=== PATIENT | female | born 1995 | race Caucasian/White ===

== ENCOUNTER → 2018-04-10 18:12 | Outpatient (CLI) | payer SELFPAY ==
[2018-04-10 20:21] LABS: Chlamydia Trachomatis by PCR Negative (Negative); Neisserai gonorrhoeae by PCR Negative (Negative); Probe Check PASS; Sample Adequacy Control PASS; Specimen Processing Control PASS
== END ==
PROVIDERS: Family Provider Family Medicine; PCP Family Medicine; Visit Provider Obstetrics & Gynecology
DX: Z11.3 Encounter for screening for infections with a predominantly sexual mode of transmission (principal)
CPT/HCPCS: 87491; 87591

== ENCOUNTER → 2018-05-09 10:26 | Outpatient (CLI) | payer OTHER, SELFPAY ==
[2018-05-09 11:13] LABS: Absolute Lymphocyte Count 1.43 X10^3/ul (0.83-4.51); Absolute Neutrophil Count 3.4 X10^3/uL (2.0-7.7); Basophil# 0.02 X10^3/uL; Basophil% 0.4 % (0-1); Color, Urine Yellow (Yellow); Eosinophil# 0.04 X10^3/uL; Eosinophils% 0.8 % (0-5); Glucose, Dipstick Normal (Normal); Hematocrit 30.8 % (37-47); Hemoglobin 10.7 g/dl (12.0-15.0); Ketone-Dipstick Negative (Negative); Leukocyte Esterase-Dipstick 25 /ul (Negative); Lymphocyte # 1.43 X10^3/ul (4.0); Lymphocyte % 27.2 % (19-41); Mean Corp Hgb Conc 34.7 g/gl (32-36); Mean Corpuscular Hgb 31.5 pg (27.0-32.0); Mean Corpuscular Volume 90.6 fL (81-99); Mean Platelet Vol. 10.4 fl (6.2-12.0); Monocyte% 7.6 % (0-10); Neutrophil # 3.37 X10^3/uL (2.7-7.7); Nitrite-Dipstick Negative (Negative); Occult Blood-Urine Negative /ul (Negative); POSITIVE COUNT NO; POSITIVE DIFFERENTIAL NO; POSITIVE MORPHOLOGY NO; Platelet Count 228 K/mm3 (150-450); Protein-Dipstick Negative (Negative); RBC Distribution Width CV 12.5 % (11.6-14.6); RBC Distribution Width SD 40.4 fl (35.1-43.9); Specific Gravity, Urine 1.005 (1.002-1.030); Urine Bilirubin Dipstick Negative (Negative); Urine Clarity Clear (Clear); Urine Urobilinogen Normal (Normal); White Blood Count 5.3 K/mm3 (4.4-11.0)
[2018-05-09 11:52] LABS: Thyroid Stim Hormone (TSH) 0.81 uIU/mL (0.358-3.74)
[2018-05-09 12:09] LABS: HIV - WCH Non-Reactive (Nonreactive); Rubella IgG 49.7 IU/mL
[2018-05-10 13:08] LABS: HEPATITIS B SURFACE AG Negative (Negative); Hep C Antibodies <0.1 s/co ratio (0.0-0.9)
[2018-05-11 03:47] LABS: Prenatal RPR NONREACTIVE (NONREACTIVE)
== END ==
PROVIDERS: Visit Provider Obstetrics & Gynecology
DX: Z34.81 Encounter for supervision of other normal pregnancy, first trimester (principal)
CPT/HCPCS: 36415; 81002; 84443; 85025; 86703; 86762; 86803; 87340

== ENCOUNTER → 2018-09-05 11:48 | Outpatient (CLI) | payer SELFPAY ==
[2018-09-05 12:27] LABS: Hematocrit 26.9 % (37-47); Mean Corp Hgb Conc 33.5 g/gl (32-36); Mean Corpuscular Hgb 31.6 pg (27.0-32.0); Mean Corpuscular Volume 94.4 fL (81-99); Mean Platelet Vol. 10.2 fl (6.2-12.0); Platelet Count 228 K/mm3 (150-450); RBC Distribution Width CV 12.7 % (11.6-14.6); RBC Distribution Width SD 43.6 fl (35.1-43.9); Red Blood Count 2.85 M/mm3 (4.2-5.4); White Blood Count 6.9 K/mm3 (4.4-11.0)
[2018-09-05 12:32] LABS: Glucose Challenge Gest 1H 50g 84 mg/dL (70-140)
[2018-09-05 12:36] LABS: Scan Indicated on CBC? Y/N NO
== END ==
PROVIDERS: Visit Provider Obstetrics & Gynecology
DX: Z34.83 Encounter for supervision of other normal pregnancy, third trimester (principal)
CPT/HCPCS: 82950; 85027

== ENCOUNTER → 2018-10-30 13:06 | Outpatient (CLI) | payer OTHER, SELFPAY ==
--- OUTSIDE RECORDS SUMMARY | 2018-12-16 16:40 | XMS RPT_ITS ---
:1995 Author Organization OHIP Care Team Providers Name Role Phone Lluvia Costa Attending Unavailable Yohan Erazo Attending Unavailable Lluvia Costa Attending Unavailable Lluvia Costa Primary Care Unavailable Lluvia Costa Admitting Unavailable Lluvia Costa Attending Unavailable Lluvia Costa Referring Unavailable Lluvia Costa Attending Unavailable Mehran Mathews Primary Care Unavailable Lluvia Costa Referring Unavailable Lluvia Costa Attending Unavailable Lluvia Costa Attending Unavailable Lluvia Costa Admitting Unavailable Lluvia Costa Attending Unavailable Lluvia Costa Referring Unavailable Mehran Mathews Primary Care Unavailable PROBLEMS PROBLEMS DATE TYPE CONDITION / CODE ATTENDING STATUS SOURCE 11/23/2018 Unknown O47.1 - False labor Lluvia Costa Active [place] at or after 37 Community completed weeks of Hospital gestation / Repository O47.1(ICD-10) 10/31/2018 Unknown Z36.85 - Encounter Nia Costaily Active [place] for Community screening for Hospital Streptococcus B / Repository Z36.85(ICD-10) 09/05/2018 Unknown Z34.83 - Encounter Nia Costaily Active [place] for supervision of Community other normal Hospital , third Repository trimester / Z34.83(ICD-10) 05/10/2018 Unknown Z34.81 - Encounter Julissa Lluvia Active [place] for supervision of Community other normal Hospital , first Repository trimester / Z34.81(ICD-10) 04/11/2018 Unknown Z11.3 - Encounter Joeybrigetteluis antonioLluvia Active [place] for screening for Community infections with a Hospital predominantly Repository sexual mode of transmission / Z11.3(ICD-10) PROCEDURES PROCEDURES No Procedure Records FoundRESULTS RESULTS CBC-COMPLETE BLOOD CNT Collected: 11/23/2018 Status: F Source: [place] NO DIFF 6:05 PM [facility] REPOSITORY Order Comment: Reason for Laboratory Test Day #1 TYPE CODE TESTS RESULT OUT OF RANGE REFERENCE UNITS LAB L100.1000 4.4-11.0 K/mm3 Normal WBC 9.7 LAB L100.1200 4.2-5.4 M/mm3 Low RBC 2.79 LAB L100.1300 12.0-15.0 g/dl Low HGB 8.8 LAB L100.1400 37-47 % Low HCT 26.4 LAB L100.1500 81-99 fL Normal MCV 94.6 LAB L100.1600 27.0-32.0 pg Normal MCH 31.5 LAB L100.1700 32-36 g/gl Normal MCHC 33.3 LAB L100.1810 11.6-14.6 % Normal RDW CV 12.9 LAB L100.1820 35.1-43.9 fl High RDW SD 44.2 LAB L100.1900 150-450 K/mm3 Normal PLT 187 LAB L100.2000 6.2-12.0 fl Normal MPV 10.1 Performed By: #### L100.0500 #### [facility] [address] [place], [address] DISCHARGE INSTRUCTION Observed: 11/22/2018 Status: F Source: BLANE 2:24 PM [facility] REPOSITORY [facility] Medical Records Department [address] [place] [address] Instructions for Home/Discharge Instructions 11/22/18 1422 MR#: [id number] Acct: [id number] Name: MARTELL DURAN Rep #: [id number] : 1995 23 From: Lluvia Costa MD PCP: Status: ADM IN Discharge Diet: No Restrictions Discharge Activity: May Shower, May Take a Tub Bath May resume sexual activity in: 4-6 weeks Additional Activity Instructions:: Nothing in the vagina for 4-6 weeks. You may return to work/school in 6 weeks. Additional Instructions: If you experience any of the following, contact your healthcare provider. * Bleeding that soaks a pad every hour for 2 hours * Fever 100.4 or higher * Unrelieved abdominal pain * Problems urinating (including inability to urinate or burning while urinating). * Visual changes * Severe headache * Flu-like symptoms * Pain or redness in one of both of your breasts * Pain, warmth, tenderness or swelling in your legs, especially the calf area * Frequent nausea and vomiting * Symptoms of depression or anxiety If you experience any of the following, call 911 or go to the nearest Emergency Room. * Chest pain * Problems breathing * Seizure activity * Partial or complete paralysis of a body part, slurred speech, weakness or drooping of the face, or a sudden inability to walk or hold your balance Allergies/Adverse Reactions: Allergies No Known Allergies Allergy (Verified 11/17/18 01:27) Medications to take at Discharge Acetaminophen [Tylenol Extra Strength] 500 mg PO Q4H PRN PRN 09/10/14 Pnv No.121/Iron/Folic Acid [ Multivitamin Tablet] 1 tab PO DAILY 11/04/18 Please Follow Up With: Lluvia Costa MD - [phone] When: Call to make an appointment with your doctor in 6 weeks. Test Results: Test results from this visit will be discussed in further detail at your follow-up appointment, if applicable. Proposed Discharge Date: 11/24/18 11/22/18 1424 <Electronically signed by Lluvia Costa MD> Date Lluvia Costa MD CC: Signed OPERATIVE REPORT Observed: 11/22/2018 Status: F Source: [place] 2:22 PM [facility] REPOSITORY [facility] Medical Records Department [address] [facility] [place] [address] Operative Report 11/22/18 1413 MR#: [id number] Acct: [id number] Name: MARTELL DURAN Rep #: [id number] : 1995 23 From: Lluvia Costa MD PCP: Status: ADM IN Location: [place] [address] Vaginal Delivery Maternal Presentation: Active Labor, Spontaneous Rupture of Membranes 39 5/7 wk SROM, labor Amniotic Membrane Rupture Type: Spontaneous at home Amniotic Fluid Description: Clear Final MICHAEL: 11/24/18 Gestational age: 39 Weeks and 5 Days Date of Procedure: 11/22/18 Pre-Operative Diagnosis: 39 5/7 wk labor, SROM Post-Operative Diagnosis: Same Surgery/ Procedure Performed: Spontaneous Vaginal Delivery Type of Anesthesia: Epidural Description of Procedure: of a lópez viable male over intact perineum to lacerations. Head delivered LOLIS. No nuchal cord. OP and nares bulb suctioned at perineum. Mild shoulder dystocia relieved by S/P pressure, gentle lateral traction, maternal expulsive effort and delivery of posterior shoulder first. to maternal abdomen Ap 8/9 Cord clamped x two and cut. PP hemorrhage due to uterine atony noted. Bimanual massage, IV Pitocin bolus, Methergine 0.2 mg IM x one. Cytotec 800 mcg TX x one given. All resulted in adequate hemostasis and good uterine tone PP exam: posterior vaginal and perineal 2nd deg laceration noted. Abrasion laceration at L anterior labia. Repaired laceration under epidural to hemostatic, intact with 3-0 Vicryl. No other lacerations noted. Cervix and upper vagina intact. EBL 500 cc Pt and infant tolerated delivery well. To recovery , stable condition Ray Candido counts correct x two. Presentation: Vertex, LOLIS Placental Delivery Description: Spontaneous, Expressed Placenta Disposition: [facility] Cord Vessel Description: 3 Vessels Cord Entanglement: None Drain: Mcallister to straight drain - pink tinged urine noted Estimated Blood Loss: 500 A gender: Male (1 minute): 8 (5 minute): 9 Episiotomy Description: None Laceration: Midline, Perineal Extension/lac, Vaginal Extension/lac, 2nd degree Medications given after delivery: IV Pitocin, IM Methergin - Cytotec 800 mcg TX x one dose Complications: None - non other than uterine atony 11/22/18 1422 <Electronically signed by Lluvia Costa MD> Date Lluvia Costa MD CC: Lluvia Costa MD Signed CBC-COMPLETE BLOOD CNT Collected: 11/22/2018 Status: F Source: [place] NO DIFF 3:40 AM [facility] REPOSITORY TYPE CODE TESTS RESULT OUT OF RANGE REFERENCE UNITS LAB L100.1000 4.4-11.0 K/mm3 Normal WBC 9.1 LAB L100.1200 4.2-5.4 M/mm3 Low RBC 3.21 LAB L100.1300 12.0-15.0 g/dl Low HGB 10.4 LAB L100.1400 37-47 % Low HCT 30.6 LAB L100.1500 81-99 fL Normal MCV 95.3 LAB L100.1600 27.0-32.0 pg High MCH 32.4 LAB L100.1700 32-36 g/gl Normal MCHC 34.0 LAB L100.1810 11.6-14.6 % Normal RDW CV 12.6 LAB L100.1820 35.1-43.9 fl Normal RDW SD 42.4 LAB L100.1900 150-450 K/mm3 Normal PLT 188 LAB L100.2000 6.2-12.0 fl Normal MPV 10.5 Performed By: #### L100.0500 #### [facility] [place], [address] TYPE AND SCREEN Collected: 11/22/2018 Status: F Source: [place] 3:40 AM [facility] REPOSITORY Order Comment: Reason for Type AND Screen/Red Cells: TYPE CODE TESTS RESULT OUT OF RANGE REFERENCE UNITS LAB B10.0800 A Normal BLOOD TYPE GEL POSITIVE LAB B100.4000 Normal Antibody NEGATIVE Screen Performed By: #### B101.7450 #### [facility] [address] [place], [address] (ROM) RUPTURE OF Collected: 11/22/2018 Status: F Source: [place] MEMBRANES 3:00 AM [facility] REPOSITORY TYPE CODE TESTS RESULT OUT OF REFERENCE UNITS RANGE LAB L205.1310 Negative High ROM POSITIVE Result Comment: Amniotic fluid present indicates rupture of Membranes. RESULTS CALLED TO CHRISTIAN BAKER 11/22/18 0328 Susi Zaragoza. REPORT READ BACK BY SAME . Performed By: #### L205.1000 #### [facility] [address] [place], [address] Observed: 10/30/2018 Status: F Source: [place] CULTURE, GROUP B 9:45 AM [facility] STREPTOCOCCUS REPOSITORY Comments: VAGINAL/RECTAL OMER Culture Group B Beta Streptococcus is not isolated. Performed By: #### M100.1800 #### [facility] [address] [place], [address] GLUCOSE CHALLENGE GEST Collected: 09/05/2018 Status: F Source: [place] 1H 50G 10:45 AM [facility] REPOSITORY TYPE CODE TESTS RESULT OUT OF RANGE REFERENCE UNITS LAB L501.0250 70-140 mg/dL Normal GLU GEST 84 50g 1H Performed By: #### L501.0250 #### [facility] [address] [place], [address] CBC-COMPLETE BLOOD CNT Collected: 09/05/2018 Status: F Source: [place] NO DIFF 10:45 AM [facility] REPOSITORY TYPE CODE TESTS RESULT OUT OF RANGE REFERENCE UNITS LAB L100.1000 4.4-11.0 K/mm3 Normal WBC 6.9 LAB L100.1200 4.2-5.4 M/mm3 Low RBC 2.85 LAB L100.1300 12.0-15.0 g/dl Low HGB 9.0 LAB L100.1400 37-47 % Low HCT 26.9 LAB L100.1500 81-99 fL Normal MCV 94.4 LAB L100.1600 27.0-32.0 pg Normal MCH 31.6 LAB L100.1700 32-36 g/gl Normal MCHC 33.5 LAB L100.1810 11.6-14.6 % Normal RDW CV 12.7 LAB L100.1820 35.1-43.9 fl Normal RDW SD 43.6 LAB L100.1900 150-450 K/mm3 Normal PLT 228 LAB L100.2000 6.2-12.0 fl Normal MPV 10.2 Performed By: #### L100.0500 #### [facility] [place], [address] CBC W/DIFF, AUTOMATED Collected: 05/09/2018 Status: F Source: [place] 10:29 AM [facility] REPOSITORY TYPE CODE TESTS RESULT OUT OF RANGE REFERENCE UNITS LAB L100.1000 4.4-11.0 K/mm3 Normal WBC 5.3 LAB L100.1200 4.2-5.4 M/mm3 Low RBC 3.40 LAB L100.1300 12.0-15.0 g/dl Low HGB 10.7 LAB L100.1400 37-47 % Low HCT 30.8 LAB L100.1500 81-99 fL Normal MCV 90.6 LAB L100.1600 27.0-32.0 pg Normal MCH 31.5 LAB L100.1700 32-36 g/gl Normal MCHC 34.7 LAB L100.1810 11.6-14.6 % Normal RDW CV 12.5 LAB L100.1820 35.1-43.9 fl Normal RDW SD 40.4 LAB L100.1900 150-450 K/mm3 Normal PLT 228 LAB L100.2000 6.2-12.0 fl Normal MPV 10.4 LAB L100.2100 47-70 % Normal NEUT% 64.0 LAB L100.2200 19-41 % Normal LY% 27.2 LAB L100.2300 0-10 % Normal MONO% 7.6 LAB L100.2400 0-5 % Normal EO% 0.8 LAB L100.2500 0-1 % Normal BASO% 0.4 LAB L100.2550 0.0-0.9 % Normal IM GRAN % 0.000 Result Comment: IG% - Immature Granulocytes (promyelocytes, myelocytes and metamyelocytes) > 1% indicates that a LEFT SHIFT is Present. LAB L100.2620 2.0-7.7 X10 3/uL Normal Absolute Neut 3.4 LAB L100.2720 0.83-4.51 X10 3/ul Normal Absolute Lymph 1.43 Performed By: #### L100.0100 #### [facility] [address] [place], [place], [address] URINALYSIS, ROUTINE Collected: 05/09/2018 Status: F Source: BLANE (DIPSTICK) 10:29 AM [facility] REPOSITORY Order Comment: How was Urine Obtained? Urine, Random TYPE CODE TESTS RESULT OUT OF RANGE REFERENCE UNITS LAB L400.3000 Yellow COLOR Normal Yellow LAB L400.3050 Clear Normal CLARITY Clear LAB L400.3200 Normal mg/dl Normal GLUCOSE, UR Normal LAB L400.3300 Negative mg/dL Normal BILIRUBIN URINE Negative LAB L400.3400 Negative mg/dl Normal KETONE UR Negative LAB L400.3465 1.002-1.030 Normal SP.GR. DIPSTX 1.005 LAB L400.3550 5.0 - 8.0 pH UR Normal 7.0 LAB L400.3600 Negative mg/dl PROT Normal DIPSTX Negative LAB L400.3700 Normal mg/dl Normal UROBILI Normal LAB L400.3750 Negative Normal NITRITE UR Negative LAB L400.3780 Negative /ul Normal OCCULT BLOOD-UR Negative LAB L400.3800 Negative /ul High LEUK 25 ESTERASE Performed By: #### L400.2010 #### [facility] [address] [place], [place], [id number] THYROID STIM HORMONE Collected: 05/09/2018 Status: F Source: [place] (TSH) 10:29 AM [facility] REPOSITORY TYPE CODE TESTS RESULT OUT OF RANGE REFERENCE UNITS LAB L501.9520 0.358-3.74 uIU/mL Normal TSH 0.81 Performed By: #### L501.9520 #### [facility] [address] [place], [address] RUBELLA IGG Collected: 05/09/2018 Status: F Source: [place] 10:29 AM [facility] REPOSITORY TYPE CODE TESTS RESULT OUT OF RANGE REFERENCE UNITS LAB L509.4000 IU/mL Normal Rubella IgG 49.7 Result Comment: Antibody results Interpretation of Immune Status < 5 IU/ml Presumed Non-immune 5 - < 10 IU/ml Equivocal > or = 10 IU/ml Presumed Immune Performed By: #### L509.4000, L3890.6005 #### [facility] [address] [place], [place], [address] HIV - [facility] Collected: 05/09/2018 Status: F Source: [place] 10:29 AM [facility] REPOSITORY TYPE CODE TESTS RESULT OUT OF RANGE REFERENCE UNITS LAB L3890.6005 Nonreactive Normal HIV - [facility] Non-Reactive Performed By: #### L509.4000, L3890.6005 #### [facility] [address] [place] [address]. [place], [address] T AND S-NO Collected: 05/09/2018 Status: F Source: [place] CHARGE W/PNP 10:29 AM [facility] REPOSITORY Order Comment: Reason for Type AND Screen/Red Cells: Surgery? N TYPE CODE TESTS RESULT OUT OF RANGE REFERENCE UNITS LAB B10.0800 A Normal BLOOD POSITIVE TYPE GEL LAB B100.4050 Normal Ab SCREEN NEGATIVE GEL Performed By: #### B100.7550 #### [facility] [address] [place] [address]. [place], [address] HEPATITIS B SURFACE Collected: 05/09/2018 Status: F Source: [place] AG 10:29 AM [facility] REPOSITORY TYPE CODE TESTS RESULT OUT OF RANGE REFERENCE UNITS LAB L3100.0400 Negative Normal HB Negative SURF AG Result Comment: Performed at: [facility] [id number] Territory Sales Executive: Luis Mireles PhD, Phone: [phone] Performed By: #### L3100.0390, L3100.0625 #### [facility] (refer to report for specific site) refer to report for address and phone number HEPATITIS C ANTIBODIES Collected: 05/09/2018 Status: F Source: [place] 10:29 AM [facility] REPOSITORY TYPE CODE TESTS RESULT OUT OF RANGE REFERENCE UNITS LAB L3100.0650 0.0-0.9 s/co ratio Normal HEP C AB <0.1 Result Comment: Negative: < 0.8 Indeterminate: 0.8 - 0.9 Positive: > 0.9 The CDC recommends that a positive HCV antibody result be followed up with a HCV Nucleic Acid Amplification test (895426). Performed By: #### L3100.0390, L3100.0625 #### [facility] (refer to report for specific site) refer to report for address and phone number RPR Collected: 05/09/2018 Status: F Source: [place] 10:29 AM [facility] REPOSITORY TYPE CODE TESTS RESULT OUT OF REFERENCE UNITS RANGE LAB L700.5100 NONREACTIVE Normal RPR NONREACTIVE Performed By: #### L700.5100 #### [facility] [address] [place], [address] CT/NG [facility] BY PCR Collected: 04/10/2018 Status: F Source: BLANE 3:00 PM [facility] REPOSITORY TYPE CODE TESTS RESULT OUT OF RANGE REFERENCE UNITS LAB L8200.2100 Negative Normal Chlam Negative Trac PCR LAB L8200.2200 Negative Normal NG by Negative PCR Performed By: #### L8200.2000 #### [facility] [address] [place], [address] ALLERGIES ALLERGIES DATE TYPE / CODE NAME / CODE REACTION SEVERITY SOURCE 11/17/2018 Drug No Known Unknown [facility] Allergy/4160 Allergies/F00 Hospital 05510(SNOMED [id number](RXNOR Repository CT) M) ENCOUNTERS ENCOUNTERS ADMIT/DISCHARGE ACCOUNT ADMITTING ENCOUNTER LOCATION SOURCE NUMBER CLASS 11/24/2018 [id number] [facility] Amb[facility] [place] 4 [facility] ing:WP Repository 11/22/2018/ [id number] Julissa Inpatient [place] 9 9 [facility] ing:WPRoom: Repository [id number]: 1 11/17/2018/ [id number] Ambulatory [place] 8 2 [facility] ing:WPOUTRoom Repository : [id number] 11/04/2018/ [id number] Ambulatory [place] 8 3 [facility] ing:WPOUTRoom Repository : [id number] 10/30/2018 [id number] Ambulatory [place] 2 [facility] ing:LABSPEC Repository 09/05/2018 [id number] Ambulatory [place] 3 [facility] ing:LABSPEC Repository 05/09/2018 [id number] Ambulatory [place] 1 [facility] ing:WOBLAB Repository 04/10/2018 [id number] Ambulatory [place] 6 [facility] ing:LABSPEC Repository PAYERS PAYERS ENCOUNTER GUARANTOR PAYER SUBSCRIBER SOURCE 11/24/2018 MARTELL Fitzpatrick Primary NOT GIVENUNK [place] [id number] Insurance:SELF PAY [place], [place] Number: Effective Repository [id number]: 330) Date:2018-10-27 [phone] () 11/22/2018 MARTELL Fitzpatrick Primary Insurance:[facility] MARTELL Fitzpatrick [place] [id number] PACKAGE PLANPolicy MILLERDOB: [facility] [address] Number: Effective [id number] Date:2018-11-22 Repository [id number]: () 11/22/2018 Secondary NOT GIVENUNK [place] Insurance:SELF PAY [facility] Number: Effective Repository Date:2018-11-22 11/17/2018 MARTELL Fitzpatrick Primary Insurance:[facility] MARTELL [id number] PACKAGE PLANPolicy MILLERDOB: [facility] [address] Number: Effective [id number] Date:2018-11-17 Repository [phone]: () 11/17/2018 Secondary NOT GIVENUNK [place] Insurance:SELF PAY [facility] Number: Effective Repository Date:2018-11-17 11/04/2018 MARTELL Fitzpatrick Primary MARTELL Fitzpatrick [place] [id number] Insurance:JORGE MILLERDOB: Community [address] AIDPolicy Number: [id number] [place], [place] 0Effective Repository [address]Pas: (330) Date:2018-11-04 [phone] () 11/04/2018 Secondary NOT GIVENUNK [place] Insurance:SELF PAY [facility]: Effective Repository Date:2018-11-04 10/30/2018 MARTELL Fitzpatrick Primary MARTELL [id number] Insurance:[facility] TER[address] AIDPolicy Number: [place], [place] [address]Effective Repository [id number]: (330) Date:2018-10-30 [phone] () 10/30/2018 Secondary NOT GIVENUNK [place] Insurance:SELF PAY [facility] Number: Effective Repository Date:2018-10-30 09/05/2018 MARTELL Primary NOT GIVENUNK [place] [id number] Insurance:SELF PAY [facility] [place] [address] [place]: Effective Repository [id number]: ([phone]) Date:2018-09-05 [phone] () 05/09/2018 MARTELL Primary MARTELL [id number] [facility] [address] AIDPolicy Number: [place], [place] 0Effective Repository [id number]: (330) Date:2018-05-09 [phone] () 05/09/2018 Secondary NOT GIVENUNK [place] Insurance:SELF PAY [facility] Number: Effective Repository Date:2018-05-09 04/10/2018 MARTELL [id number] Primary NOT GIVENUNK [place] [address] Insurance:SELF PAY [place] [facility] [id number]: (330) Number: Effective Repository [phone] () Date:2018-04-10
== END ==
PROVIDERS: Visit Provider Obstetrics & Gynecology
DX: Z36.85 Encounter for antenatal screening for Streptococcus B (principal)
CPT/HCPCS: 87081

== ENCOUNTER 2018-11-04 16:25 | Outpatient (CLI) | payer OTHER, SELFPAY ==
[2018-11-04 16:50] VITALS: BMI 29.6
--- NOTE | 2018-11-05 00:15 | OB.TRI.NOTE ---
History of Present Illness Date of Service: 11/04/18 Was patient seen by the physician?: No Reason For Visit: DECREASED MOVEMENT Date of Service: 11/04/18 Final MICHAEL: 11/26/18 Final MICHAEL Source: US <20 weeks Gestational age: 37 Weeks and 0 Days History of Present Illness: Decreased movement. lower abdominal pain. Allergies No Known Allergies Allergy (Verified 11/04/18 16:51) Physical Exam General: Alert, Oriented x3, Cooperative, No apparent distress Cardiovascular: Regular rate, Regular Rhythm Lungs: Clear to auscultation, Normal air movement Abdomen: Soft, Non Tender, Non-Distended, Gravid, Appropriate for Gestational Age Extremities:: No edema Neurological: Neuro grossly intact IN STORE DEMONSTRATOR: Normal external genitalia Estimated gestational size: Appropriate for gestational size Presentation: Cephalic NST - FHR Rate Baby A Baseline: 150s Variability:: Moderate Accelerations:: 15 x 15 Decelerations:: None NST Reactive:: Yes, Appropriate for gestational age FHR Category:: Category I Uterine Activity:: rare Impression/Plan No signs of active labor. Reassuring heart rate pattern.
--- OUTSIDE RECORDS SUMMARY | 2019-02-06 13:39 | XMS RPT_ITS ---
:1995 Author Organization OHIP Care Team Providers Name Role Phone Lluvia Costa Attending Unavailable Yohan Erazo Attending Unavailable Lluvia Costa Attending Unavailable Mehran Mathews [...] O47.1 - False labor Lluvia Costa Active [place] at or after 37 Community completed weeks of Hospital gestation / Repository O47.1(ICD-10) 10/31/2018 Unknown Z36.85 - Encounter Nia Costaily Active [place] for Community screening for Hospital Streptococcus B / Repository Z36.85(ICD-10) 09/05/2018 Unknown Z34.83 - Encounter Nia Costaily Active [place] for supervision of Community other normal Hospital , third Repository trimester / Z34.83(ICD-10) 05/10/2018 Unknown Z34.81 - Encounter Julissa Lluvia Active [place] for supervision of Community other normal Hospital , first Repository trimester / Z34.81(ICD-10) 04/11/2018 Unknown Z11.3 - Encounter Joeybrigetteluis antonioLluvia Active [place] for screening for Community infections with a Hospital predominantly Repository sexual mode of transmission / Z11.3(ICD-10) PROCEDURES PROCEDURES No Procedure Records FoundRESULTS RESULTS CBC-COMPLETE BLOOD CNT Collected: 11/23/2018 Status: F Source: [place] NO DIFF 6:05 PM [facility] REPOSITORY Order Comment: Reason for Laboratory [...] MPV 10.1 Performed By: #### L100.0500 #### [facility] [address] [place], [address] DISCHARGE INSTRUCTION Observed: 11/22/2018 Status: F Source: BLANE 2:24 PM [facility] REPOSITORY [facility] Medical Records Department [address] [place] [address] Instructions for Home/Discharge Instructions 11/22/18 1422 MR#: [id number] Acct: [id number] Name: MARTELL DURAN Rep #: [id number] : 1995 23 From: Lluvia Costa MD [...] Follow Up With: Lluvia Costa MD - [phone] When: Call to make an appointment with your doctor in 6 weeks. Test Results: Test results from this visit will be discussed in further detail at your follow-up appointment, if applicable. Proposed Discharge Date: 11/24/18 11/22/18 1424 <Electronically signed by Lluvia Costa MD> Date Lluvia Costa MD CC: Signed OPERATIVE REPORT Observed: 11/22/2018 Status: F Source: FLANAGAN 2:22 PM [facility] REPOSITORY [facility] Medical Records Department [address] [facility] [place] [address] Operative Report 11/22/18 1413 MR#: [id number] Acct: [id number] Name: MARTELL DURAN Rep #: [id number] : 1995 23 From: Lluvia Costa MD PCP: Status: ADM IN Location: [place] [address] Vaginal Delivery Maternal Presentation: Active Labor, Spontaneous [...] mg IM x one. Cytotec 800 mcg MA x one given. All resulted in adequate [...] Pitocin, IM Methergin - Cytotec 800 mcg MA x one dose Complications: None - non other than uterine atony 11/22/18 1422 <Electronically signed by Lluvia Costa MD> Date Lluvia Costa MD CC: Lluvia Costa MD Signed CBC-COMPLETE BLOOD CNT Collected: 11/22/2018 Status: F Source: FLANAGAN NO DIFF 3:40 AM [facility] REPOSITORY TYPE CODE TESTS RESULT OUT OF [...] MPV 10.5 Performed By: #### L100.0500 #### [facility] [place], [address] TYPE AND SCREEN Collected: 11/22/2018 Status: F Source: BLANE 3:40 AM [facility] REPOSITORY Order Comment: Reason for Type AND Screen/Red Cells: TYPE CODE TESTS RESULT OUT OF RANGE REFERENCE UNITS LAB B10.0800 A Normal BLOOD TYPE GEL POSITIVE LAB B100.4000 Normal Antibody NEGATIVE Screen Performed By: #### B101.7450 #### [facility] [address] [place], [address] (ROM) RUPTURE OF Collected: 11/22/2018 Status: F Source: BLANE MEMBRANES 3:00 AM [facility] REPOSITORY TYPE CODE TESTS RESULT OUT OF REFERENCE UNITS RANGE LAB L205.1310 Negative High ROM POSITIVE Result Comment: Amniotic fluid present indicates rupture of Membranes. RESULTS CALLED TO CHRISTIAN BAKER 11/22/18 0328 Susi Zaragoza. REPORT READ BACK BY SAME . Performed By: #### L205.1000 #### [facility] [address] [place], [address] Observed: 10/30/2018 Status: F Source: BLANE CULTURE, GROUP B 9:45 AM [facility] STREPTOCOCCUS REPOSITORY Comments: VAGINAL/RECTAL OMER Culture Group B Beta Streptococcus is not isolated. Performed By: #### M100.1800 #### [facility] [address] [place], [address] GLUCOSE CHALLENGE GEST Collected: 09/05/2018 Status: F Source: BLANE 1H 50G 10:45 AM [facility] REPOSITORY TYPE CODE TESTS RESULT OUT OF RANGE REFERENCE UNITS LAB L501.0250 70-140 mg/dL Normal GLU GEST 84 50g 1H Performed By: #### L501.0250 #### [facility] [address] [place], [address] CBC-COMPLETE BLOOD CNT Collected: 09/05/2018 Status: F Source: BLANE NO DIFF 10:45 AM [facility] REPOSITORY TYPE CODE TESTS RESULT OUT OF [...] MPV 10.2 Performed By: #### L100.0500 #### [facility] [place], [address] CBC W/DIFF, AUTOMATED Collected: 05/09/2018 Status: F Source: FLANAGAN 10:29 AM [facility] REPOSITORY TYPE CODE TESTS RESULT OUT OF [...] Lymph 1.43 Performed By: #### L100.0100 #### [facility] [address] [place], [place], [address] URINALYSIS, ROUTINE Collected: 05/09/2018 Status: F Source: BLANE (DIPSTICK) 10:29 AM [facility] REPOSITORY Order Comment: How was Urine Obtained? [...] 25 ESTERASE Performed By: #### L400.2010 #### [facility] [address] [place], [place], [address] THYROID STIM HORMONE Collected: 05/09/2018 Status: F Source: BLANE (TSH) 10:29 AM [facility] REPOSITORY TYPE CODE TESTS RESULT OUT OF RANGE REFERENCE UNITS LAB L501.9520 0.358-3.74 uIU/mL Normal TSH 0.81 Performed By: #### L501.9520 #### [facility] [address] [place], [address] RUBELLA IGG Collected: 05/09/2018 Status: F Source: FLANAGAN 10:29 AM [facility] REPOSITORY TYPE CODE TESTS RESULT OUT OF RANGE REFERENCE UNITS LAB L509.4000 IU/mL Normal Rubella IgG 49.7 Result Comment: Antibody results Interpretation of Immune Status < 5 IU/ml Presumed Non-immune 5 - < 10 IU/ml Equivocal > or = 10 IU/ml Presumed Immune Performed By: #### L509.4000, L3890.6005 #### [facility] [address] [place], [place], [address] HIV - W[facility] Collected: 05/09/2018 Status: F Source: FLANAGAN 10:29 AM [facility] REPOSITORY TYPE CODE TESTS RESULT OUT OF RANGE REFERENCE UNITS LAB L3890.6005 Nonreactive Normal HIV - [facility] Non-Reactive Performed By: #### L509.4000, L3890.6005 #### [facility] [address] [place] [address]. [place], [address] T AND S-NO Collected: 05/09/2018 Status: F Source: FLANAGAN CHARGE W/PNP 10:29 AM [facility] REPOSITORY Order Comment: Reason for Type AND Screen/Red Cells: Surgery? N TYPE CODE TESTS RESULT OUT OF RANGE REFERENCE UNITS LAB B10.0800 A Normal BLOOD POSITIVE TYPE GEL LAB B100.4050 Normal Ab SCREEN NEGATIVE GEL Performed By: #### B100.7550 #### [facility] [address] [place] [address]. [place], [address] HEPATITIS B SURFACE Collected: 05/09/2018 Status: F Source: BLANE AG 10:29 AM [facility] REPOSITORY TYPE CODE TESTS RESULT OUT OF RANGE REFERENCE UNITS LAB L3100.0400 Negative Normal HB Negative SURF AG Result Comment: Performed at: [facility] [address] [id number] [employer] Laborer: Luis Mireles PhD, Phone: [phone] Performed By: #### L3100.0390, L3100.0625 #### [facility] (refer to report for specific site) refer to report for address and phone number HEPATITIS C ANTIBODIES Collected: 05/09/2018 Status: F Source: BLANE 10:29 AM [facility] REPOSITORY TYPE CODE TESTS RESULT OUT OF RANGE REFERENCE UNITS LAB L3100.0650 0.0-0.9 s/co ratio Normal HEP C AB <0.1 Result Comment: Negative: < 0.8 Indeterminate: 0.8 - 0.9 Positive: > 0.9 The CDC recommends that a positive HCV antibody result be followed up with a HCV Nucleic Acid Amplification test ([id number]). Performed By: #### L3100.0390, L3100.0625 #### [facility] (refer to report for specific site) refer to report for address and phone number RPR Collected: 05/09/2018 Status: F Source: BLANE 10:29 AM [facility] REPOSITORY TYPE CODE TESTS RESULT OUT OF REFERENCE UNITS RANGE LAB L700.5100 NONREACTIVE Normal RPR NONREACTIVE Performed By: #### L700.5100 #### [facility] [address] [place], [address] CT/NG [facility] BY PCR Collected: 04/10/2018 Status: F Source: BLANE 3:00 PM [facility] REPOSITORY TYPE CODE TESTS RESULT OUT OF RANGE REFERENCE UNITS LAB L8200.2100 Negative Normal Chlam Negative Trac PCR LAB L8200.2200 Negative Normal NG by Negative PCR Performed By: #### L8200.2000 #### [facility] [address] [place], [address] ALLERGIES ALLERGIES DATE TYPE / CODE NAME / CODE REACTION SEVERITY SOURCE 11/17/2018 Drug No Known Unknown [facility] Allergy/4160 Allergies/F00 Hospital 37356(SNOMED [id number](RXNOR Repository CT) M) ENCOUNTERS ENCOUNTERS ADMIT/DISCHARGE ACCOUNT ADMITTING ENCOUNTER LOCATION SOURCE NUMBER CLASS 11/24/2018 [id number] Julissa Ambulatory [place] 4 [facility] ing:WP Repository 11/22/2018/ [id number] Julissa Inpatient [place] 9 9 [facility] ing:WPRoom: Repository IA572Czp: 1 11/17/2018/ [id number] Ambulatory [place] 8 2 [facility] ing:WPOUTRoom Repository : [id number] 11/04/2018/ [id number] Ambulatory [place] 8 3 [facility] ing:WPOUTRoom Repository : [id number] 10/30/2018 [id number] Ambulatory [place] 2 [facility] ing:LABSPEC Repository 09/05/2018 [id number] Ambulatory [place] 3 [facility] ing:LABSPEC Repository 05/09/2018 [id number] Ambulatory [place] 1 [facility] ing:WOBLAB Repository 04/10/2018 [id number] Ambulatory [place] 6 [facility] ing:LABSPEC Repository PAYERS PAYERS ENCOUNTER GUARANTOR PAYER SUBSCRIBER SOURCE 11/24/2018 MARTELL Fitzpatrick Primary NOT GIVENUNK [place] [id number] Insurance:SELF PAY [place], [place] Number: Effective Repository [id number]: 330) Date:2018-10-27 [phone] () 11/22/2018 MARTELL Fitzpatrick Primary Insurance:[facility] MARTELL Fitzpatrick [place] [id number] PACKAGE PLANPolicy MILLERDOB: [facility] TERESA RDAPPLE [place]: [id number] Date:2018-11-22 Repository [address]Dfi: () 11/22/2018 Secondary NOT GIVENUNK [place] Insurance:SELF PAY [facility] Number: Effective Repository Date:2018-11-22 11/17/2018 MARTELL Fitzpatrick Primary Insurance:[facility] MARTELL [id number] PACKAGE PLANPolicy MILLERDOB: [facility] TERESA RDAPPLE Number: [id number] Date:2018-11-17 Repository 57091Sau: () 11/17/2018 Secondary NOT GIVENUNK [place] Insurance:SELF PAY [facility] Number: Effective Repository Date:2018-11-17 11/04/2018 MARTELL Fitzpatrick Primary MARTELL Fitzpatrick [place] [id number] Insurance:JORGE MILLERDOB: Community TERESA RDAPPLE AIDPolicy Number: [id number] [place], [place] [address]Effective Repository [address]Ncw: (330) Date:2018-11-04 [phone] () 11/04/2018 Secondary NOT GIVENUNK [place] Insurance:SELF PAY [facility] Number: Effective Repository Date:2018-11-04 10/30/2018 MARTELL Fitzpatrick Primary MARTELL [id number] Insurance:[facility] TERESA RDAPPLE AIDPolicy Number: [place], [place] [address]Effect[address] Repository [address]Jnk: ([phone]) Date:2018-10-30 [phone] () 10/30/2018 Secondary NOT GIVENUNK [place] Insurance:SELF PAY [facility] Number: Effective Repository Date:2018-10-30 09/05/2018 MARTELL Primary NOT GIVENUNK [place] [id number] Insurance:SELF PAY [facility] [place]: Effective Repository [id number]: ([phone]) Date:2018-09-05 [phone] () 05/09/2018 MARTELL Primary MARTELL [id number] [facility] TERESA RDAPPLE AIDPolicy Number: [place], [place] [address]Effect[address] Repository [address]Ixj: (330) Date:2018-05-09 [phone] () 05/09/2018 Secondary NOT GIVENUNK [place] Insurance:SELF PAY [facility] Number: Effective Repository Date:2018-05-09 04/10/2018 MARTELL [id number] Primary NOT GIVENUNK [place] TERESA RDAPPLE Insurance:SELF PAY [place] [facility] [address]Gwm: (330) Number: Effective Repository [phone] () Date:2018-04-10
== END 2018-11-04 17:15 | disposition home or self-care (01) ==
LOC: WPOUT 16:31 → WP 16:32
PROVIDERS: Visit Provider Obstetrics & Gynecology
DX: O47.1 False labor at or after 37 completed weeks of gestation (principal); O36.8130 Decreased fetal movements, third trimester, not applicable or unspecified; O26.893 Other specified pregnancy related conditions, third trimester; R10.30 Lower abdominal pain, unspecified; Z3A.37 37 weeks gestation of pregnancy
CPT/HCPCS: 59025; 59050; 99218; G0378

== ENCOUNTER 2018-11-17 00:38 | Outpatient (CLI) | payer SELFPAY ==
--- NOTE | 2018-11-21 12:27 | OB.TRI.NOTE ---
History of Present Illness Date of Service: 11/17/18 Was patient seen by the physician?: Yes Reason For Visit: R/O LABOR Date of Service: 11/17/18 Final MICHAEL: 11/24/18 Final MICHAEL Source: US <20 weeks Gestational age: 39 wks. History of Present Illness: 23 yo female presents for labor check with some UCs. No VB. Neg ROM. + FM Allergies No Known Allergies Allergy (Verified 11/17/18 01:27) Physical Exam General: Alert, Oriented x3, Cooperative, No apparent distress HEENT: Atraumatic Abdomen: Soft, Gravid Extremities:: No edema TOOL SUPERVISOR: Normal external genitalia Estimated gestational size: Appropriate for gestational size Presentation: Cephalic Cervix Dilation (cm): 1.5 - posterior Station: -3 NST - FHR Rate Baby A Baseline: 120-140 with avg variaiblity accels UCs q 2-3 mins no change of cervix Variability:: Moderate Accelerations:: 15 x 15 Decelerations:: Variable - lasting less then 10 sec to 90-100 bpm (two in hours of observation) NST Reactive:: Yes FHR Category:: Category I Uterine Activity:: Irregular UCs q 1-3 mins. Not painful, sleeping through these. Impression/Plan 39 wk False labor Reactive NST Home. Keep appt in ofc as planned, Return if inc s/sx of labor
--- NOTE | 2018-11-21 12:32 | OB.TRI.HP_ITS ---
History of Present Illness Date of Service: 11/17/18 Was patient seen by the physician?: Yes Reason For Visit: R/O LABOR Date of Service: 11/17/18 Final MICHAEL: 11/24/18 Final MICHAEL Source: US <20 weeks Gestational age: 39 wks. History of Present Illness: 23 yo female presents for labor check with some UCs. No VB. Neg ROM. 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 Not painful, sleeping through these . Impression/Plan 39 wk False labor Reactive NST Home. Keep appt in ofc as planned, Return if inc s/sx of labor
== END 2018-11-17 06:45 | disposition home or self-care (01) ==
LOC: WPOUT 01:19 → WP 01:19
PROVIDERS: Family Provider Obstetrics & Gynecology; Visit Provider Obstetrics & Gynecology
DX: O47.1 False labor at or after 37 completed weeks of gestation (principal); Z3A.39 39 weeks gestation of pregnancy
CPT/HCPCS: 59025; 59050; 99218; G0378

== ENCOUNTER 2018-11-22 03:30 | Inpatient (IN) | payer SELFPAY ==
[2018-11-22 02:54] VITALS: BMI 29.3
[2018-11-22 03:28] LABS: ROM Internal Control Test YES-OK TO RESULT pt. (Internal QC)
[2018-11-22 03:29] LABS: ROM Patient Test POSITIVE (Negative)
[2018-11-22] MEDS: 0.9% Saline Lock 10 ML Syringe IV (03:40)
[2018-11-22 03:56] LABS: Hematocrit 30.6 % (37-47); Hemoglobin 10.4 g/dl (12.0-15.0); Mean Corpuscular Hgb 32.4 pg (27.0-32.0); Mean Corpuscular Volume 95.3 fL (81-99); Mean Platelet Vol. 10.5 fl (6.2-12.0); Platelet Count 188 K/mm3 (150-450); RBC Distribution Width CV 12.6 % (11.6-14.6); RBC Distribution Width SD 42.4 fl (35.1-43.9); Red Blood Count 3.21 M/mm3 (4.2-5.4); White Blood Count 9.1 K/mm3 (4.4-11.0)
[2018-11-22 03:58] LABS: Scan Indicated on CBC? Y/N NO
[2018-11-22] MEDS: Lactated Ringers 1,000 ML 50 ML IV ×4 (06:01→09:29)
[2018-11-22] MEDS: fentaNYL-bupivacaine (epidural) 100 ML BAG EPIDURAL (07:30)
--- NOTE | 2018-11-22 08:09 | PCM.PN.BLA ---
Progress Note LABOR PROGRESS NOTE -- 39 5/7 wk EGA SROM Just got epidural (at time of my rounding) and is now comfortable. had declined cervix checks since admission when she was 3 cm due to pain. AVSS EFM 120-130 avg variability UCs q 1 1/2 - 3 mins ... now to very widely spaced out since epidural. Some coupling also noted. cX deferred per pt request A/P: 39 5/7 wk EGA . SROM this am. Spont labor. Epidural placed. Recheck cervix, place og. consider pitocin prn.
[2018-11-22] MEDS: Oxytocin 30 units/NS 500 ml 30 UNITS/500 ML IV.SOLN 334 UNITS IV (11:39)
[2018-11-22] MEDS: Methylergonovine 0.2 MG/ML Ampul IM (11:43)
[2018-11-22] MEDS: miSOPROStol 200 MCG Tablet 800 MCG RECTAL (11:49)
[2018-11-22] MEDS: Oxytocin 30 units/NS 500 ml 30 UNITS/500 ML IV.SOLN 167 UNITS IV (11:51)
--- NOTE | 2018-11-22 14:13 | PCM.OB.VAG ---
Vaginal Delivery Maternal Presentation: Active Labor, Spontaneous Rupture of Membranes 39 5/7 wk SROM, labor Amniotic Membrane Rupture Type: Spontaneous at home Amniotic Fluid Description: Clear Final MICHAEL: 11/24/18 Gestational age: 39 Weeks and 5 Days Date of Procedure: 11/22/18 Pre-Operative Diagnosis: 39 5/7 wk labor, SROM Post-Operative Diagnosis: Same Surgery/ Procedure Performed: Spontaneous Vaginal Delivery Type of Anesthesia: Epidural Description of Procedure: of a lópez viable male over intact perineum to lacerations. Head delivered LOLIS. No nuchal cord. OP and nares bulb suctioned at perineum. Mild shoulder dystocia relieved by S/P pressure, gentle lateral traction, maternal expulsive effort and delivery of posterior shoulder first. to maternal abdomen Ap 8/9 Cord clamped x two and cut. PP hemorrhage due to uterine atony noted. Bimanual massage, IV Pitocin bolus, Methergine 0.2 mg IM x one. Cytotec 800 mcg [place] x one given. All resulted in adequate hemostasis and good uterine tone PP exam: posterior vaginal and perineal 2nd deg laceration noted. Abrasion laceration at L anterior labia. Repaired laceration under epidural to hemostatic, intact with 3-0 Vicryl. No other lacerations noted. Cervix and upper vagina intact. EBL 500 cc Pt and tolerated delivery well. To recovery , stable condition Ray Candido counts correct x two. Presentation: Vertex, LOLIS Placental Delivery Description: Spontaneous, Expressed Placenta Disposition: [facility] Cord Vessel Description: 3 Vessels Cord Entanglement: None Drain: Mcallister to straight drain - pink tinged urine noted Estimated Blood Loss: 500 Infant A gender: Male (1 minute): 8 (5 minute): 9 Episiotomy Description: None Laceration: Midline, Perineal Extension/lac, Vaginal Extension/lac, 2nd degree Medications given after delivery: IV Pitocin, IM Methergin - Cytotec 800 mcg [place] x one dose Complications: None - non other than uterine atony
--- NOTE | 2018-11-22 14:19 | OP.PCM_ITS ---
Vaginal Delivery Maternal Presentation: Active Labor, Spontaneous Rupture of Membranes 39 5/7 wk SROM, labor Amniotic Membrane Rupture Type: Spontaneous at home Amniotic Fluid Description: Clear Final MICHAEL: 11/24/18 Gestational age: 39 Weeks and 5 Days Date of Procedure: 11/22/18 Pre-Operative Diagnosis: 39 5/7 wk labor, SROM Post-Operative Diagnosis: Same Surgery/ Procedure Performed: Spontaneous Vaginal Delivery Type of Anesthesia: Epidural Description of Procedure: of a lópez viable male over intact perineum to lacerations. Head delivered LOLIS. No nuchal cord. OP and nares bulb suctioned at perineum. Mild shoulder dystocia relieved by S/P pressure, gentle lateral traction, maternal expulsive effort and delivery of posterior shoulder first. to maternal abdomen Ap 8/9 Cord clamped x two and cut. PP hemorrhage due to uterine atony noted. Bimanual massage, IV Pitocin bolus, Methergine 0.2 mg IM x one. Cytotec 800 mcg [place] x one given. All resulted in adequate hemostasis and good uterine tone PP exam: posterior vaginal and perineal 2nd deg laceration noted. Abrasion laceration at L anterior labia. Repaired laceration under epidural to hemostatic, intact with 3-0 Vicryl. No other lacerations noted. Cervix and upper vagina intact. EBL 500 cc Pt and tolerated delivery well. To recovery , stable condition Ray Candido counts correct x two. Presentation: Vertex, LOLIS Placental Delivery Description: Spontaneous, Expressed Placenta Disposition: [facility] Cord Vessel Description: 3 Vessels Cord Entanglement: None Drain: Mcallister to straight drain - pink tinged urine noted Estimated Blood Loss: 500 Infant A gender: Male (1 minute): 8 (5 minute): 9 Episiotomy Description: None Laceration: Midline, Perineal Extension/lac, Vaginal Extension/lac, 2nd degree Medications given after delivery: IV Pitocin, IM Methergin - Cytotec 800 mcg [place] x one dose Complications: None - non other than uterine atony
--- NOTE | 2018-11-22 14:22 | PCM.DCVAG ---
Discharge Diet: No Restrictions Discharge Activity: May Shower, May Take a Tub Bath May resume sexual activity in: 4-6 weeks Additional Activity Instructions:: Nothing in the vagina for 4-6 weeks. You may return to work/school in 6 weeks. Additional Instructions: If you experience any of the following, contact your healthcare provider. Bleeding that soaks a pad every hour for 2 hours Fever 100.4 or higher Unrelieved abdominal pain Problems urinating (including inability to urinate or burning while urinating). Visual changes Severe headache Flu-like symptoms Pain or redness in one of both of your breasts Pain, warmth, tenderness or swelling in your legs, especially the calf area Frequent nausea and vomiting Symptoms of depression or anxiety If you experience any of the following, call 911 or go to the nearest Emergency Room. Chest pain Problems breathing Seizure activity Partial or complete paralysis of a body part, slurred speech, weakness or drooping of the face, or a sudden inability to walk or hold your balance Allergies/Adverse Reactions: Allergies No Known Allergies Allergy (Verified 11/17/18 01:27) Medications to take at Discharge Acetaminophen [Tylenol Extra Strength] 500 mg PO Q4H PRN PRN 09/10/14 Pnv No.121/Iron/Folic Acid [ Multivitamin Tablet] 1 tab PO DAILY 11/04/18 Please Follow Up With: Lluvia Costa MD - [phone] When: Call to make an appointment with your doctor in 6 weeks. Test Results: Test results from this visit will be discussed in further detail at your follow-up appointment, if applicable. Proposed Discharge Date: 11/24/18
--- NOTE | 2018-11-22 14:24 | DCINST_ITS ---
Discharge Diet: No Restrictions Discharge Activity: May Shower, May Take a Tub Bath May resume sexual activity in: 4-6 weeks Additional Activity Instructions:: Nothing in the vagina for 4-6 weeks. You may return to work/school in 6 weeks. Additional Instructions: If you experience any of the following, contact your healthcare provider. * Bleeding that soaks a pad every hour for 2 hours * Fever 100.4 or higher * Unrelieved abdominal pain * Problems urinating (including inability to urinate or burning while urinating). * Visual changes * Severe headache * Flu-like symptoms * Pain or redness in one of both of your breasts * Pain, warmth, tenderness or swelling in your legs, especially the calf area * Frequent nausea and vomiting * Symptoms of depression or anxiety If you experience any of the following, call 911 or go to the nearest Emergency Room. * Chest pain * Problems breathing * Seizure activity * Partial or complete paralysis of a body part, slurred speech, weakness or drooping of the face, or a sudden inability to walk or hold your balance Allergies/Adverse Reactions: Allergies No Known Allergies Allergy (Verified 11/17/18 01:27) Medications to take at Discharge Acetaminophen [Tylenol Extra Strength] 500 mg PO Q4H PRN PRN 09/10/14 Pnv No.121/Iron/Folic Acid [ Multivitamin Tablet] 1 tab PO DAILY 11/04/18 Please Follow Up With: Lluvia Costa MD - [phone] When: Call to make an appointment with your doctor in 6 weeks. Test Results: Test results from this visit will be discussed in further detail at your follow- up appointment, if applicable. Proposed Discharge Date: 11/24/18
[2018-11-22 14:30] VITALS: BP 119/63; PULSE 77; RESP 18; TEMP 37.2; O2SAT 98
--- NOTE | 2018-11-22 15:39 | CASEMGMT ---
Social Work Labor and Delivery Consult received for resources today. Per RN mother of baby is interested in WIC. Chart reviewed and noted patient is from the [facility] and a first time mom; history of anxiety. Presented to MOB's room, also present MOB's and another adult couple. Introduced to self and present to go over resources. MOB asks if okay to come back a later (due to visitors). chemical tank worker agreed as MOB just delivered today and will have some time yet in the hospital. Plan: Social work will try to see MOB again at a later time. -GREGG Lau, FLOOR POLISHER
[2018-11-22 18:00] VITALS: BP 113/64; PULSE 74; RESP 16; TEMP 36.9; O2SAT 98
[2018-11-22] MEDS: Acetaminophen 500 MG Tablet 1000 MG PO (18:20)
[2018-11-22 19:59] VITALS: BP 115/69; PULSE 94; RESP 16; TEMP 36.7; O2SAT 98
[2018-11-22 23:35] VITALS: BP 117/62; PULSE 77; RESP 18; TEMP 36.4; O2SAT 96
[2018-11-23] MEDS: Acetaminophen 500 MG Tablet 1000 MG PO (02:03)
[2018-11-23 04:30] VITALS: BP 106/57; PULSE 71; RESP 16; TEMP 36.7
--- NOTE | 2018-11-23 08:01 | PCM.PN.OB ---
Subjective: PPD#1 SROM, labor. Doing well. States some soreness at bottom and at back . Bottle feeding, denies uterine cramping. Baby 9# wt per pt. Objective: Sitting up in bed holding sleeping baby. - Physical Exam General: Alert, Oriented x3, Cooperative, No apparent distress HEENT: Atraumatic Neck: Supple Abdomen: Soft - Fundus firm NT at umbilicus Psych/Mental Status: Normal Affect, Appropriate Vital Signs Temp Pulse Resp BP Pulse Ox 98.1 F 71 16 106/57 L 96 11/23/18 04:30 11/23/18 04:30 11/23/18 04:30 11/23/18 04:30 11/22/18 23:35 Oxygen Delivery Method Room Air Weight: 77.564 kg Body Mass Index (BMI) 29.3 Intake and Output for Last 24 Hours 11/21/18 11/22/18 11/23/18 23:59 23:59 23:59 Intake Total 4582 / 4582 Output Total 3000 / 3000 600 / 600 Balance 1582 / 1582 -600 / -600 Medical Necessity - Tobacco Use Smoking Status: Former smoker Assessment/Plan PPD#1 Stable . Continue routine care.
[2018-11-23 08:36] VITALS: BP 102/61; PULSE 76; RESP 16; TEMP 36.3
[2018-11-23] MEDS: Ibuprofen 600 MG Tablet PO ×2 (10:30→19:39)
[2018-11-23] MEDS: Prenatal Vits Tablet 1 TABLET PO (10:30)
[2018-11-23] MEDS: Senna/Docusate Sodium 1 Tablet PO (10:30)
--- NOTE | 2018-11-23 12:24 | CM.ED ---
Social Work Assessment Referral Date: 11/22/2018 Date of Assessment: 11/23/2018 Reason for Consult: Hx of anxiety, resources Informant: Trixie Guerin RN Information obtained from: Medical records, MOB and FOB. MOB presents with pleasant affect as evidenced by smiling and willingness to participate in assessment. Pt is sitting upright in bed with infant at bedside in bristol hospitalinet. FOB is standing at bedside. MOB is alert and oriented and able to participate in assessment. Living Arrangements: ADNI reports to live with spouse, Ronald. They have been together for two years. Ronald is involved in the child's care and this is their first child. 's name is Louie. Request that Ronald exit the room to discuss with MOB. MOB denies abuse or neglect. Report to have all necessary supplies for including car seat, crib, clothes, pampers, wipes, bottles, and formula. Education: 8th grade completed. Able to read and write, no comprehension concerns. Employment/Financial: JORI works at [employer] and reports to be financially stable. Supports: DANI reports her spouse, Ronald, and her mother (lives 5 miles away), as her two primary supports. Social/Family Stressors: DANI reports that her brother completed suicide this past summer. Mental Health Hx: DANI reports a hx of anxiety. States that she is not on medication, but take a natural pill that supplements mood. States that she has gone to counseling at [facility], with her last appointment being 10/23/18. Reports that she saw them for the anxiety as well as the bereavement services following her brothers . DANI is aware of how to contact [facility] if she needs additional services. Discussed PPD depression and symptoms to be cognizant of in the upcoming weeks. Encourage the pt to follow up with Dr. Costa or [facility] if those symptoms persist. Pt expresses understanding. Substance Use Hx: No current substance abuse. Pt does report to drink socially. Interventions(s): Assessment complete, and pt clear to return home. Discuss resources such as WIC and [facility]. MOB expresses interest and declines to have schedule intake appointments at this time. States that due to transportation needs it would be easiest for her and her spouse to schedule. Both numbers and additional information provided. Reviewed mental health resources and PPD. Understanding expressed, and pt is linked with [facility] in [place]. PLAN: Home with support of family. RN made aware assessment complete, ant pt clear for discharge from SW standpoint. Annemarie Alvarado, FLUTE TEACHER, [place]
[2018-11-23 14:10] VITALS: BP 104/59; PULSE 76; RESP 16; TEMP 36.2
[2018-11-23 18:37] LABS: Hematocrit 26.4 % (37-47); Hemoglobin 8.8 g/dl (12.0-15.0); Mean Corp Hgb Conc 33.3 g/gl (32-36); Mean Corpuscular Hgb 31.5 pg (27.0-32.0); Mean Corpuscular Volume 94.6 fL (81-99); Mean Platelet Vol. 10.1 fl (6.2-12.0); Platelet Count 187 K/mm3 (150-450); RBC Distribution Width CV 12.9 % (11.6-14.6); RBC Distribution Width SD 44.2 fl (35.1-43.9); Red Blood Count 2.79 M/mm3 (4.2-5.4); White Blood Count 9.7 K/mm3 (4.4-11.0)
[2018-11-23 18:39] LABS: Scan Indicated on CBC? Y/N NO
[2018-11-23 19:45] VITALS: BP 104/56; PULSE 77; RESP 16; TEMP 36.8; O2SAT 98
[2018-11-24 02:00] VITALS: BP 100/58; PULSE 71; RESP 16; TEMP 36.7; O2SAT 97
--- NOTE | 2018-11-24 08:16 | PCM.PN.OB ---
Subjective: PPD#2 Doing well. In good spirits and no pain med needed since last evening. Bottle feeding well. - Physical Exam General: Alert, Oriented x3, Cooperative, No apparent distress HEENT: Atraumatic Neck: Supple Abdomen: Soft - Fundus firm NT at just inferior to umbilicus Psych/Mental Status: Normal Affect Vital Signs Temp Pulse Resp BP Pulse Ox 98.0 F 71 16 100/58 L 97 11/24/18 02:00 11/24/18 02:00 11/24/18 02:00 11/24/18 02:00 11/24/18 02:00 Oxygen Delivery Method Room Air Weight: 77.564 kg Body Mass Index (BMI) 29.3 Intake and Output for Last 24 Hours 11/22/18 11/23/18 11/24/18 23:59 23:59 23:59 Intake Total 4582 / 4582 Output Total 3000 / 3000 600 / 600 Balance 1582 / 1582 -600 / -600 Laboratory Tests Past 24 Hrs 11/23/18 18:05 WBC 9.7 RBC 2.79 L Hgb 8.8 L Hct 26.4 L MCV 94.6 MCH 31.5 MCHC 33.3 RDW 12.9 RDW Differential 44.2 H Plt Count 187 MPV 10.1 Medical Necessity - Tobacco Use Smoking Status: Former smoker Assessment/Plan PPD#2 Stable . Dischg home. RTO in 6 wk for pp check, prn sooner.
[2018-11-24 09:02] VITALS: BP 108/60; PULSE 87; RESP 15; TEMP 36.7; O2SAT 97
[2018-11-24] MEDS: Acetaminophen 500 MG Tablet 1000 MG PO (11:18)
== END 2018-11-24 12:40 | disposition home or self-care (01) | DRG 806 ==
LOC: WPOUT 03:31 → WP 03:31
PROVIDERS: Obstetrics & Gynecology; Admitting Provider Obstetrics & Gynecology; Referring Provider Obstetrics & Gynecology; Visit Provider Obstetrics & Gynecology
DX: O42.02 Full-term premature rupture of membranes, onset of labor within 24 hours of rupture (principal); O72.2 Delayed and secondary postpartum hemorrhage; Z37.0 Single live birth; O66.0 Obstructed labor due to shoulder dystocia; O70.1 Second degree perineal laceration during delivery; Z87.891 Personal history of nicotine dependence; Z3A.39 39 weeks gestation of pregnancy
CPT/HCPCS: 59025; 59050; 84112; 85027; 86850; 86900; 99218; J7120; A4216; G0378

== ENCOUNTER → 2019-12-03 13:47 | Outpatient (CLI) | payer OTHER, SELFPAY ==
[2019-12-03 16:48] LABS: Chlamydia Trachomatis by PCR Negative (Negative); Neisserai gonorrhoeae by PCR Negative (Negative); Probe Check PASS; Sample Adequacy Control PASS; Specimen Processing Control PASS
== END ==
PROVIDERS: Visit Provider Obstetrics & Gynecology
DX: Z11.3 Encounter for screening for infections with a predominantly sexual mode of transmission (principal)
CPT/HCPCS: 87491; 87591

== ENCOUNTER → 2020-01-01 11:21 | Outpatient (CLI) | payer OTHER, SELFPAY ==
[2020-01-01 13:51] LABS: Color, Urine Straw (Yellow); Glucose, Dipstick Normal (Normal); Ketone-Dipstick Negative (Negative); Leukocyte Esterase-Dipstick 25 /ul (Negative); Nitrite-Dipstick Negative (Negative); Occult Blood-Urine Negative /ul (Negative); Protein-Dipstick Negative (Negative); Urine Bilirubin Dipstick Negative (Negative); Urine Clarity Sl. Cloudy (Clear); Urine Urobilinogen Normal (Normal)
[2020-01-01 14:06] LABS: Absolute Lymphocyte Count 1.45 X10^3/uL (0.83-4.51); Basophil# 0.02 X10^3/uL; Basophil% 0.3 % (0-1); Eosinophil# 0.03 X10^3/uL; Eosinophils% 0.5 % (0-5); Hematocrit 31.1 % (37-47); Hemoglobin 10.6 g/dL (12.0-15.0); Lymphocyte # 1.45 X10^3/ul (4.0); Mean Corp Hgb Conc 34.1 g/dL (32-36); Mean Corpuscular Hgb 31.5 pg (27.0-32.0); Mean Corpuscular Volume 92.6 fL (81-99); Mean Platelet Vol. 10.6 fl (6.2-12.0); Monocyte# 0.29 X10^3/uL; NRBC Flagged by Analyzer 0 % (0-5); Neutrophil # 4.01 X10^3/uL (2.7-7.7); Platelet Count 230 K/mm3 (150-450); RBC Distribution Width CV 12.7 % (11.6-14.6); RBC Distribution Width SD 42.8 fl (35.1-43.9); Red Blood Count 3.36 M/mm3 (4.2-5.4); White Blood Count 5.8 K/mm3 (4.4-11.0)
[2020-01-01 14:17] LABS: Thyroid Stim Hormone (TSH) 1.06 uIU/mL (0.358-3.74)
[2020-01-02 02:39] LABS: Prenatal RPR NONREACTIVE (NONREACTIVE)
[2020-01-02 10:22] LABS: HIV - WCH Non-Reactive (Nonreactive); Hepatitis B Surface Antigen Non-Reactive (Nonreactive); Hepatitis C Antibody Non-Reactive (Nonreactive); Rubella IgG 49.1 IU/mL; Vitamin D,25 Hydroxy 29.7 ng/mL (29.95-100.01)
[2020-01-02 14:38] LABS: Ferritin 26 ng/mL (8-252)
== END ==
PROVIDERS: Visit Provider Obstetrics & Gynecology
DX: Z34.82 Encounter for supervision of other normal pregnancy, second trimester (principal)
CPT/HCPCS: 36415; 81002; 82306; 82728; 84443; 85025; 86703; 86762; 86803; 87340

== ENCOUNTER → 2020-03-31 09:02 | Outpatient (CLI) | payer OTHER, SELFPAY ==
[2020-03-31 10:47] LABS: Hematocrit 29.4 % (37-47); Hemoglobin 9.9 g/dL (12.0-15.0); Mean Corp Hgb Conc 33.7 g/dL (32-36); Mean Corpuscular Hgb 32.4 pg (27.0-32.0); Mean Corpuscular Volume 96.1 fL (81-99); Mean Platelet Vol. 10.7 fl (6.2-12.0); Platelet Count 203 K/mm3 (150-450); RBC Distribution Width CV 12.2 % (11.6-14.6); RBC Distribution Width SD 42.4 fl (35.1-43.9); Red Blood Count 3.06 M/mm3 (4.2-5.4); White Blood Count 6.4 K/mm3 (4.4-11.0)
[2020-03-31 10:51] LABS: Glucose Challenge Gest 1H 50g 88 mg/dL (70-140)
[2020-03-31 11:31] LABS: Vitamin D,25 Hydroxy 44.1 ng/mL
== END ==
PROVIDERS: PCP Family Medicine; Visit Provider Obstetrics & Gynecology
DX: Z34.83 Encounter for supervision of other normal pregnancy, third trimester (principal)
CPT/HCPCS: 36415; 82306; 82950; 85027

== ENCOUNTER 2020-05-03 08:40 | Outpatient (CLI) | payer OTHER, SELFPAY ==
[2020-05-03 08:57] VITALS: BP 106/57; PULSE 73; TEMP 36.9; O2SAT 98
[2020-05-03 09:03] VITALS: BMI 29.7
[2020-05-03] MEDS: Acetaminophen 500 MG Tablet 1000 MG PO (09:44)
--- NOTE | 2020-05-08 08:07 | OB.TRI.NOTE ---
History of Present Illness Date of Service: 05/03/20 Was patient seen by the physician?: No Reason For Visit: R/O LABOR Date of Service: 05/03/20 Final MICHAEL: 06/20/20 Final MICHAEL Source: US <20 weeks Gestational age: 33 Weeks and 1 Days History of Present Illness: 24 yo presents with some contractions. Allergies No Known Allergies Allergy (Verified 05/03/20 09:04) Physical Exam Vitals: Vital Signs Temp Pulse BP Pulse Ox 98.5 F 73 106/57 L 98 05/03/20 08:57 05/03/20 08:57 05/03/20 08:57 05/03/20 08:57 NST - FHR Rate Baby A NST Reactive:: Yes FHR Category:: Category I Impression/Plan 24 yo with transient contractions. Resolved with po hydration. No cervical change. Discharged to home with routine instruction.
== END 2020-05-03 11:55 | disposition home or self-care (01) ==
LOC: WPOUT 08:43 → OBT 08:44
PROVIDERS: PCP Family Medicine; Referring Provider Obstetrics & Gynecology; Visit Provider Obstetrics & Gynecology
DX: O60.03 Preterm labor without delivery, third trimester (principal); Z3A.33 33 weeks gestation of pregnancy
CPT/HCPCS: 59025; 59050; 99218; G0378

== ENCOUNTER → 2020-06-03 | Outpatient (CLI) | payer OTHER, SELFPAY | END | disposition home or self-care (01) | LOC: LABSPEC 11:48 | PROVIDERS: PCP Family Medicine; Visit Provider Obstetrics & Gynecology | DX: Z36.85 Encounter for antenatal screening for Streptococcus B (principal) | CPT/HCPCS: 87081 ==

== ENCOUNTER 2020-06-18 00:45 | Inpatient (IN) | payer SELFPAY, OTHER ==
[2020-06-18] VITALS (52 sets, daily range): BP systolic 99–128; BP diastolic 57–71; PULSE 68–125; RESP 16–18; TEMP 36.1–37.4; O2SAT 96–99; BMI 30.5
[2020-06-18] MEDS: Lactated Ringers 1,000 ML 50 ML IV (01:05)
[2020-06-18 01:29] LABS: Absolute Lymphocyte Count 1.37 X10^3/uL (0.83-4.51); Absolute Neutrophil Count 12.3 X10^3/uL (2.0-7.7); Basophil# 0.03 X10^3/uL; Basophil% 0.2 % (0-1); Eosinophil# 0.08 X10^3/uL; Eosinophils% 0.5 % (0-5); Hematocrit 29.8 % (37-47); Hemoglobin 10.2 g/dL (12.0-15.0); Lymphocyte # 1.37 X10^3/ul (4.0); Lymphocyte % 9.3 % (19-41); Mean Corp Hgb Conc 34.2 g/dL (32-36); Mean Corpuscular Hgb 32.2 pg (27.0-32.0); Mean Platelet Vol. 10.9 fl (6.2-12.0); Monocyte# 0.86 X10^3/uL; Monocyte% 5.8 % (0-10); NRBC Flagged by Analyzer 0 % (0-5); Neutrophil # 12.32 X10^3/uL (2.7-7.7); Neutrophil % 83.7 % (47-70); Platelet Count 168 K/mm3 (150-450); RBC Distribution Width CV 12.5 % (11.6-14.6); RBC Distribution Width SD 43.4 fl (35.1-43.9); Red Blood Count 3.17 M/mm3 (4.2-5.4); White Blood Count 14.7 K/mm3 (4.4-11.0)
--- NOTE | 2020-06-18 06:45 | PCM.HP.OB ---
- Problem List (1) 39 weeks gestation of Status: Acute History Date of Admission: 06/18/20 Final MICHAEL: 06/20/20 Final MICHAEL Source: US <20 weeks Gestational age: 39 Weeks and 5 Days History of this : This is a 24 year-old, G [2], P [1], at 39 weeks gestational age. Allergies No Known Allergies Allergy (Verified 05/03/20 09:04) Home Medications: Home Medications Pnv No.121/Iron/Folic Acid [ Multivitamin Tablet] 1 tab PO DAILY 11/04/18 Citalopram [Celexa] 20 mg PO DAILY 05/03/20 Eprim/Linoleic/Gamolenic/Cranb [Evening [place] Oil Softgel] 1 ea PO 06/18/20 Nowata-3 Fatty Acids/Fish Oil [Nowata 3 Fish Oil Softgel] 1 ea PO 06/18/20 Vitamin D 1 cap PO 06/18/20 Smoking Status: Never smoker Alcohol: None Substance Use Type: Anxiety Medications Number of Fetus(es): 1 NST - FHR Rate Baby A Baseline: 130 Variability:: Moderate Accelerations:: 15 x 15 Decelerations:: None NST Reactive:: Yes FHR Category:: Category I Uterine Activity:: Q1.5-4m History Past Pregnancies: PRIOR DELIVERY HISTORY DEL DATE GEST LAB WT LB WT OZ TYPE ANES LABOR TX 03 Dec 08 39 9 9 0 Vag Epidural No Labs: Mom's Labs & Results 06/18/20 06/18/20 06/18/20 01:05 01:05 02:05 WBC 14.7 H RBC 3.17 L Hgb 10.2 L Hct 29.8 L MCV 94.0 MCH 32.2 H MCHC 34.2 RDW Std Deviation 43.4 RDW Coeff of Oumar 12.5 Plt Count 168 MPV 10.9 Immature Gran % (Auto) 0.500 Neut % (Auto) 83.7 H Lymph % (Auto) 9.3 L [place] % (Auto) 5.8 Eos % (Auto) 0.5 Baso % (Auto) 0.2 Absolute Neuts (auto) 12.3 H Absolute Lymphs (auto) 1.37 Nucleated RBC % 0 COVID-19 (SESAR) Not Detected Blood Type A POSITIVE Antibody Screen NEGATIVE Course Did the patient receive Yes care? Labs Blood Type: A RH: POSITIVE RPR/VDRL/Syphilis Nonreactive Rubella status Immune HbSAg Negative Date Done: 01/01/20 Chlamydia Negative Gonorrhea Negative HIV/AIDS Non-Reactive Group B Strep: Negative Current Obstetrical History Gestational Diabetes No Incompetent Cervix No Infertility No IUGR No Macrosomia No Hypertension/Pre-eclampsia No Placenta Previa/Abruption No PTL/PROM No Uterine anomaly No Oligohydramnios No Polyhydramnios No Multiple gestation No Past Medical History Asthma No Diabetes No Hypertension No Heart disease No Mitral valve prolapse No Neurologic/Seizure disorder/ No Migraines Kidney disease No Liver disease No Varicosities Yes: some in legs per pt Clotting disorders/Hx of DVT No Thyroid Dysfunction No Other medical diseases No Psychiatric disorders Yes: anxiety Major trauma No Abnormal PAP smear No Sleep apnea No Mammogram in the last 2 years No Social History Marital Status: Alleged father Ronald Mercado Hx Smoking No Smoking Status Never smoker Substance Use Type Anxiety Medications How long have you used 1 substances (years)? What date/time did you last celexa 48hrs ago use any of the above? Have you had any previous no inpatient or outpatient treatment Expected Infant Delivery Method: Spontaneous Vaginal Number of Visits: 8 Review of Systems Constitutional: Denies: Chills, Fever, Weight Change HEENT: Denies: Head Aches, Sinus Congestion, Sinus Drainage Cardiovascular: Denies: Chest Pain, Palpitations Respiratory: Denies: Cough, Shortness of breath at rest, Sputum production Gastrointestinal: Denies: Abdominal Pain, Nausea, Vomiting Genitourinary: Denies: Dysuria Musculoskeletal: Denies: Joint Pain, Joint Tenderness Skin: Denies: Rash, Wounds Neurological: Denies: Numbness, Tingling, Focal weakness Psychiatric: Denies: Anxiety, Depression, Homicidal Ideations, Suicidal Ideations Hematologic/ Lymphatic: Denies: Easy Bruising, Easy Bleeding Physical Exam Vitals: Vital Signs Temp Pulse BP Pulse Ox 98.3 F 125 H 128/62 H 98 06/18/20 07:41 06/18/20 07:41 06/18/20 07:41 06/18/20 07:41 General: Alert, Oriented x3, No apparent distress HEENT: Atraumatic, Normocephalic. Negative for: Thyromegaly, Lymphadenopathy Cardiovascular: Regular rate, Regular Rhythm Lungs: Clear to auscultation Abdomen: Bowel Sounds Present, Gravid Neurological: Deep Tendon Reflexes 2+/4 and Symmetrical, Neuro grossly intact DELICATE [employer] PRESSER: Normal external genitalia. Negative for: Vulvar lesions Estimated gestational size: Appropriate for gestational size Presentation: Cephalic Cervix Dilation (cm): 7 Station: -2 Effacement (%): 90 Assessment/Plan All Active Problems 39 weeks gestation of (Acute) A/P: This is a 24 year-old, G [2], P [1], at 39 weeks gestational age. SVE 7.5/90/-2 AROM with clear fluid at 0630 NST Category I with intermittent auscultation Plans natural labor with bath tub for pain management Expect Will update Dr. Chavez, primary OB-DELICATE F[employer] PRESSER on patients assessment Procedure Criteria Procedure Type: Elective COVID Risk Discussion: The surgeon/proceduralist and patient have discussed in detail the risk of exposure to and/or potential harm posed by the COVID-19 virus with having a surgery/procedure at this time versus the risk of delaying the surgery/procedure. It is not possible to know either the risk of delaying the surgery or procedure or chance of getting an infection with perfect accuracy, but a joint decision was made between the patient and the surgeon/proceduralist to proceed at this time with the scheduled surgery/procedure as indicated on the consent form.
[2020-06-18] MEDS: Acetaminophen 325 MG Tablet PO (06:58)
[2020-06-18] MEDS: Lactated Ringers 500 ML 999 ML IV (08:08)
[2020-06-18] MEDS: Oxytocin 30 units/NS 500 ml 30 UNITS/500 ML IV.SOLN 999 UNITS IV (08:41)
[2020-06-18] MEDS: Methylergonovine 0.2 MG/ML Ampul IM (08:43)
[2020-06-18] MEDS: Carboprost Tromethamine 250 MCG/ML Ampul IM (08:46)
--- NOTE | 2020-06-18 09:30 | OP.PCM_ITS ---
Problem List (1) (spontaneous vaginal delivery) Status: Acute (2) Cervical laceration Status: Acute (3) hemorrhage Status: Acute Qualifiers: hemorrhage type: third-stage Qualified Code(s): O72.0 - Third- stage hemorrhage Report of Operation Date of Procedure: 06/18/20 - Vaginal Delivery Maternal Presentation: Active Labor Amniotic Membrane Rupture Type: Artificial Rupture of Membrane time: 06/18/20 Amniotic Fluid Description: Clear Final MICHAEL: 06/20/20 Final MICHAEL Source: US <20 weeks Gestational age: 39 Weeks and 5 Days Date of Procedure: 06/18/20 Pre-Operative Diagnosis: 39 5/7 weeks Post-Operative Diagnosis: 39 5/7 weeks Surgery/ Procedure Performed: Spontaneous Vaginal Delivery Anesthesiologist: Evelyne Olvera Type of Anesthesia: Pudendal block with 1% lidocaine Description of Procedure: Patient was FD/+3 station on my arrival. Pushed to deliver a vigorous female in MAXI. mouth and nares were bulb suctioned and placed on the maternal abdomen and further attended by nursery personnel. The cord was doubly clamped and cut. There was significant bleeding with lengthening of the placenta consistent with hemorrhage. IV pitocin was administered. The placenta delivered and appeared intact on inspection. Bimanual uterine massage was performed, the uterus was notably atonic with improved tone with massage. IM Methergine was given as well as Hemabate with improvement of bleeding, however, bleeding persisted. The perineum was inspected and intact. A posterior cervical laceration was present. The laceration site was clamped with further improvement of bleeding. Straight catheterization of the bladder was performed. I administered a pudendal block bilaterally with a total of 15cc of 1% lidocaine and in room monitored sedation was administered by the CARDIOPULMONARY SPECIALIST using propofol and fentanyl for patient comfort. The cervical laceration was repaired with 3-0 Vicryl Rapide with hemostasis attained. The cervix was patent and the fundus remained firm. Sponge and needle counts were correct x 2. Presentation: Vertex Placental Delivery Description: Spontaneous Placenta Disposition: [facility] Cord Vessel Description: 3 Vessels Nuchal Cord Compression: Without compression Cord Entanglement: None Drain: - - straight cath Estimated Blood Loss: 1500 ml Infant A gender: Female (1 minute): 8 (5 minute): 9 Episiotomy Description: None Laceration: Cervical Extension/lac Medications given after delivery: IV Pitocin, IM Methergin, IM Hemabate Complications: None
[2020-06-18] MEDS: Citalopram 20 MG Tablet PO (11:36)
[2020-06-18] MEDS: Prenatal Vits Tablet 1 TABLET PO (14:02)
[2020-06-18 14:10] LABS: Hematocrit 28.9 % (37-47); Mean Corp Hgb Conc 34.6 g/dL (32-36); Mean Corpuscular Hgb 32.6 pg (27.0-32.0); Mean Corpuscular Volume 94.1 fL (81-99); Mean Platelet Vol. 10.9 fl (6.2-12.0); Platelet Count 204 K/mm3 (150-450); RBC Distribution Width CV 12.9 % (11.6-14.6); RBC Distribution Width SD 43.6 fl (35.1-43.9); Red Blood Count 3.07 M/mm3 (4.2-5.4); White Blood Count 20.3 K/mm3 (4.4-11.0)
[2020-06-18] MEDS: 0.9% Saline Lock 10 ML Syringe IV (20:14)
[2020-06-19 00:33] VITALS: BP 100/50; PULSE 81; RESP 18; TEMP 36.4
[2020-06-19] MEDS: Ibuprofen 600 MG Tablet PO ×2 (00:40→14:37)
[2020-06-19 04:30] VITALS: BP 97/52; PULSE 69; RESP 18; TEMP 36.2
[2020-06-19 04:55] LABS: Hematocrit 25.2 % (37-47); Hemoglobin 8.3 g/dL (12.0-15.0); Mean Corp Hgb Conc 32.9 g/dL (32-36); Mean Corpuscular Hgb 31.6 pg (27.0-32.0); Mean Corpuscular Volume 95.8 fL (81-99); Mean Platelet Vol. 10.6 fl (6.2-12.0); Platelet Count 191 K/mm3 (150-450); RBC Distribution Width CV 13.1 % (11.6-14.6); RBC Distribution Width SD 45.3 fl (35.1-43.9); Red Blood Count 2.63 M/mm3 (4.2-5.4); White Blood Count 13.8 K/mm3 (4.4-11.0)
--- NOTE | 2020-06-19 07:53 | PN.OBGYN_ITS ---
Patient Problems: Active and Suspected Problems 39 weeks gestation of (Acute) (spontaneous vaginal delivery) (Acute) Cervical laceration (Acute) hemorrhage (Acute) Subjective: She reports soreness this morning. Denies heavy bleeding. She is out of bed, no voiding difficulty. Bottlefeeding. Reports lightheadedness when up and about however. No heart racing. Objective: AVSS - Physical Exam Vitals/I&O's: Vital Signs Temp Pulse Resp BP Pulse Ox 97.2 F L 69 18 97/52 L 96 06/19/20 04:30 06/19/20 04:30 06/19/20 04:30 06/19/20 04:30 06/18/20 16:30 Oxygen Delivery Method Room Air Weight: 80.649 kg Body Mass Index (BMI) 30.5 Intake and Output for Last 24 Hours 06/17/20 06/18/20 06/19/20 23:59 23:59 23:59 Intake Total 1013.8 / 1013.8 Output Total 750 / 750 Balance 263.8 / 263.8 General: Alert, Oriented x3, Cooperative, No apparent distress HEENT: Atraumatic, Normocephalic Lungs: Normal air movement Cardiovascular: Regular rate, Regular Rhythm, Normal S1, Normal S2 Abdomen: Bowel Sounds Present, Soft, Non Tender, Non-Distended Extremities: No edema, No Calf Tenderness Neurological: Neuro grossly intact Psych/Mental Status: Normal Affect, Appropriate, Alert and oriented to time, place, person, mood and affect Comment: Lochia scant Laboratory Results 06/18/20 14:00: WBC 20.3 H, RBC 3.07 L, Hgb 10.0 L, Hct 28.9 L, MCV 94.1, MCH 32.6 H, MCHC 34.6, RDW Std Deviation 43.6, RDW Coeff of Oumar 12.9, Plt Count 204, MPV 10.9 06/19/20 04:45: WBC 13.8 H, RBC 2.63 L, Hgb 8.3 L, Hct 25.2 L, MCV 95.8, MCH 31.6, MCHC 32.9, RDW Std Deviation 45.3 H, RDW Coeff of Oumar 13.1, Plt Count 191, MPV 10.6 Current Medications Acetaminophen (Tylenol) 1,000 mg PO Q8H PRN PRN PRN Reason: Pain Score 1-3/10 Bisacodyl (Dulcolax) 10 mg RECTAL UD PRN PRN Reason: If no BM Citalopram Hydrobromide (Celexa) 20 mg PO DAILY [facility] Last Admin: 06/18/20 11:36 Dose: 20 mg Documented by: Dibucaine (Dibucaine) 1 applic TOPICAL TID PRN PRN; Protocol PRN Reason: Discomfort Hydrocortisone (Hytone) 1 applic TOPICAL TID PRN PRN; Protocol PRN Reason: Discomfort Ibuprofen (Motrin) 600 mg PO Q6H PRN PRN PRN Reason: Pain Score 1-3/10 Last Admin: 06/19/20 00:40 Dose: 600 mg Documented by: Methylergonovine Maleate (Methergine) 0.2 mg IM X1 PRN PRN Reason: Excess bleeding/uterine atony Last Admin: 06/18/20 08:43 Dose: 0.2 mg Documented by: Ondansetron HCl (Zofran) 4 mg IV Q4H PRN PRN PRN Reason: NAUSEA Multivit/Folic Acid/Iron (Prenatabs Fa) 1 tablet PO DAILY@1200 KRISTY Last Admin: 06/18/20 14:02 Dose: 1 tablet Documented by: Senna/Docusate Sodium (Senokot-S, Teresa-Colace) 1 - 2 tablet PO DAILY PRN PRN PRN Reason: Constipation Simethicone (Mylicon) 80 mg PO PCHS PRN PRN Reason: Indigestion/Stomach pain Sodium Chloride () 5 - 15 ml IV UD PRN PRN Reason: SALINE FLUSH Last Admin: 06/18/20 20:14 Dose: 10 ml Documented by: Medical Necessity - Tobacco Use Smoking Status: Never smoker Assessment/Plan All Active Problems 39 weeks gestation of (Acute) (spontaneous vaginal delivery) (Acute) Cervical laceration (Acute) hemorrhage (Acute) 24yo PPD#1 s/p with PPH 2/2 uterine atony and cervical laceration -H/H reviewed, pt with mild sx anemia -Increase PO hydration -Routine care -Rh positive
--- NOTE | 2020-06-19 08:01 | DCINST_ITS ---
Discharge Diet: No Restrictions Discharge Activity: Return to Normal Activity May resume sexual activity in: 4-6 weeks Additional Instructions: If you experience any of the following, contact your healthcare provider. * Bleeding that soaks a pad every hour for 2 hours * Fever 100.4 or higher * Unrelieved incision or abdominal pain * Swelling, redness, discharge or bleeding from your incision or episiotomy site * Your incision begins to separate * Problems urinating (including inability to urinate or burning while urinating). * Visual changes * Severe headache * Flu-like symptoms * Pain or redness in one of both of your breasts * Pain, warmth, tenderness or swelling in your legs, especially the calf area * Frequent nausea and vomiting * Symptoms of depression or anxiety If you experience any of the following, call 911 or go to the nearest Emergency Room. * Chest pain * Problems breathing * Seizure activity * Partial or complete paralysis of a body part, slurred speech, weakness or drooping of the face, or a sudden inability to walk or hold your balance Please take Floradix or over the counter Ferrous sulfate twice daily for iron deficiency anemia. Increase iron containing foods such as red meat, legumes, leafy greens, nuts and seeds. Allergies/Adverse Reactions: Allergies No Known Allergies Allergy (Verified 05/03/20 09:04) Medications to take at Discharge Pnv No.121/Iron/Folic Acid [ Multivitamin Tablet] 1 tab PO DAILY 11/04/18 Citalopram [Celexa] 20 mg PO DAILY 05/03/20 Eprim/Linoleic/Gamolenic/Cranb [Evening [place] Oil Softgel] 1 ea PO 06/18/20 [place]-3 Fatty Acids/Fish Oil [[place] 3 Fish Oil Softgel] 1 ea PO 06/18/20 Vitamin D 1 cap PO 06/18/20 Please Follow Up With: Scott - visit When: 6 weeks Primary Care Physician: Mehran Mathews DO [Primary Care Provider] - Test Results: Test results from this visit will be discussed in further detail at your follow- up appointment, if applicable.
--- NOTE | 2020-06-19 08:01 | PCM.DCVAG ---
Discharge Diet: No Restrictions Discharge Activity: Return to Normal Activity May resume sexual activity in: 4-6 weeks Additional Instructions: If you experience any of the following, contact your healthcare provider. Bleeding that soaks a pad every hour for 2 hours Fever 100.4 or higher Unrelieved incision or abdominal pain Swelling, redness, discharge or bleeding from your incision or episiotomy site Your incision begins to separate Problems urinating (including inability to urinate or burning while urinating). Visual changes Severe headache Flu-like symptoms Pain or redness in one of both of your breasts Pain, warmth, tenderness or swelling in your legs, especially the calf area Frequent nausea and vomiting Symptoms of depression or anxiety If you experience any of the following, call 911 or go to the nearest Emergency Room. Chest pain Problems breathing Seizure activity Partial or complete paralysis of a body part, slurred speech, weakness or drooping of the face, or a sudden inability to walk or hold your balance Please take Floradix or over the counter Ferrous sulfate twice daily for iron deficiency anemia. Increase iron containing foods such as red meat, legumes, leafy greens, nuts and seeds. Allergies/Adverse Reactions: Allergies No Known Allergies Allergy (Verified 05/03/20 09:04) Medications to take at Discharge Pnv No.121/Iron/Folic Acid [ Multivitamin Tablet] 1 tab PO DAILY 11/04/18 Citalopram [Celexa] 20 mg PO DAILY 05/03/20 Eprim/Linoleic/Gamolenic/Cranb [Even[place] Oil Softgel] 1 ea PO 06/18/20 [place]-3 Fatty Acids/Fish Oil [[place] 3 Fish Oil Softgel] 1 ea PO 06/18/20 Vitamin D 1 cap PO 06/18/20 Please Follow Up With: Scott - visit When: 6 weeks Primary Care Physician: Mehran Mathews DO [Primary Care Provider] - Test Results: Test results from this visit will be discussed in further detail at your follow-up appointment, if applicable.
[2020-06-19] MEDS: Citalopram 20 MG Tablet PO (09:45)
[2020-06-19] MEDS: Senna/Docusate Sodium 1 Tablet PO (09:45)
[2020-06-19] MEDS: Acetaminophen 500 MG Tablet 1000 MG PO (09:52)
[2020-06-19 09:55] VITALS: BP 94/57; PULSE 75; RESP 16; TEMP 36.4; O2SAT 97
[2020-06-19 14:21] VITALS: BP 98/63; PULSE 78; RESP 16; TEMP 36.8; O2SAT 97
== END 2020-06-19 15:00 | disposition home or self-care (01) | DRG 768 ==
LOC: WPOUT 00:50 → WP 00:51
PROVIDERS: Obstetrics & Gynecology; Admitting Provider Obstetrics & Gynecology; PCP Family Medicine; Referring Provider Obstetrics & Gynecology; Visit Provider Obstetrics & Gynecology
DX: O71.3 Obstetric laceration of cervix (principal); Z37.0 Single live birth; O72.0 Third-stage hemorrhage; D62 Acute posthemorrhagic anemia; O99.02 Anemia complicating childbirth; O62.2 Other uterine inertia; Z3A.39 39 weeks gestation of pregnancy; O99.344 Other mental disorders complicating childbirth; F41.9 Anxiety disorder, unspecified; Z87.891 Personal history of nicotine dependence
CPT/HCPCS: 59025; 59050; 85025; 85027; 86850; 86900; 86901; 87635; 94799; 99218; J7120; A4216; G0378; U0003

== ENCOUNTER → 2021-06-01 | Outpatient (CLI) | payer OTHER, SELFPAY ==
[2020-06-18 00:20] VITALS: BMI 30.5
[2021-06-05 11:48] LABS: HPV Reflexed? NOT INDICATED
== END | disposition home or self-care (01) ==
LOC: LABSPEC 15:36
PROVIDERS: PCP Family Medicine; Visit Provider Obstetrics & Gynecology
DX: Z12.4 Encounter for screening for malignant neoplasm of cervix (principal)
CPT/HCPCS: 88175; G0145

== ENCOUNTER → 2021-08-17 11:54 | Outpatient (CLI) | payer SELFPAY ==
[2021-08-17 13:47] LABS: Color, Urine Yellow (Yellow); Glucose, Dipstick Normal (Normal); Ketone-Dipstick Negative (Negative); Leukocyte Esterase-Dipstick 500 /ul (Negative); Nitrite-Dipstick Negative (Negative); Occult Blood-Urine Negative /ul (Negative); Protein-Dipstick Negative (Negative); Specific Gravity, Urine 1.015 (1.002-1.030); Urine Bilirubin Dipstick Negative (Negative); Urine Clarity Clear (Clear); Urine Urobilinogen Normal (Normal)
[2021-08-17 13:48] LABS: Absolute Lymphocyte Count 1.66 X10^3/uL (0.83-4.51); Absolute Neutrophil Count 4.1 X10^3/uL (2.0-7.7); Basophil# 0.02 X10^3/uL; Basophil% 0.3 % (0-1); Eosinophil# 0.04 X10^3/uL; Eosinophils% 0.6 % (0-5); Hematocrit 34.8 % (37-47); Hemoglobin 11.7 g/dL (12.0-15.0); Lymphocyte # 1.66 X10^3/ul (0.83-4.51); Lymphocyte % 26.5 % (19-41); Mean Corp Hgb Conc 33.6 g/dL (32-36); Mean Corpuscular Hgb 30.4 pg (27.0-32.0); Mean Corpuscular Volume 90.4 fL (81-99); Mean Platelet Vol. 10.8 fl (6.2-12.0); Monocyte# 0.42 X10^3/uL; Monocyte% 6.7 % (0-10); NRBC Flagged by Analyzer 0 % (0-5); Neutrophil % 65.6 % (47-70); Platelet Count 303 K/mm3 (150-450); RBC Distribution Width CV 12.5 % (11.6-14.6); RBC Distribution Width SD 41.2 fl (35.1-43.9); Red Blood Count 3.85 M/mm3 (4.2-5.4); White Blood Count 6.3 K/mm3 (4.4-11.0)
[2021-08-17 14:19] LABS: ALB/GLOB Ratio 0.9 RATIO (0.9-2.4); AST(SGOT) 10 U/L (15-37); Alanine Aminotransfer ALT/SGPT 17 U/L (13-56); Albumin, Serum 3.9 g/dL (3.2-5.0); Alkaline Phosphatase 39 U/L (45-117); Anion Gap 8 (5-15); BUN 5 mg/dL (7-18); BUN/Creat Ratio 10.1 RATIO (10-20); Calcium,Total 9.7 mg/dL (8.5-10.1); Chloride 104 mmol/L (98-107); Creatinine, Serum 0.49 mg/dL (0.55-1.02); EST Glomerular Filtration Rate 163 mL/min (>60); Est Glom Filt Rate - Afr Amer 197 mL/min (>60); Globulin 4.2 g/dL (2.2-4.2); Glucose 89 mg/dL (74-106); Potassium 3.9 mmol/L (3.5-5.1); Protein, Total 8.1 g/dL (6.4-8.2); Sodium Level 136 mmol/L (136-145); Thyroid Stim Hormone (TSH) 0.79 uIU/mL (0.358-3.74)
[2021-08-17 14:40] LABS: HIV - WCH Non-Reactive (Nonreactive); Hepatitis B Surface Antigen Non-Reactive (Nonreactive); Hepatitis C Antibody Non-Reactive (Nonreactive); Rubella IgG Reactive (Nonreactive); Syphilis Antibodies Non-reactive
[2021-08-18 22:06] LABS: Chlamydia By Nucleic Acid AMP Negative (Negative)
[2021-08-18 22:45] LABS: Gonococcus By Nucleic Acid AMP Negative (Negative)
== END ==
PROVIDERS: PCP Family Medicine; Visit Provider Obstetrics & Gynecology
DX: Z34.81 Encounter for supervision of other normal pregnancy, first trimester (principal); Z11.3 Encounter for screening for infections with a predominantly sexual mode of transmission
CPT/HCPCS: 36415; 80053; 81002; 84443; 85025; 86703; 86762; 86780; 86803; 87086; 87340; 87491; 87591

== ENCOUNTER 2021-12-21 09:24 | Outpatient (CLI) | payer OTHER, SELFPAY ==
[2021-12-21 10:46] LABS: Hematocrit 27.4 % (37-47); Hemoglobin 9.4 g/dL (12.0-15.0); Mean Corp Hgb Conc 34.3 g/dL (32-36); Mean Corpuscular Hgb 31.6 pg (27.0-32.0); Mean Corpuscular Volume 92.3 fL (81-99); Platelet Count 155 K/mm3 (150-450); RBC Distribution Width CV 12.9 % (11.6-14.6); RBC Distribution Width SD 43.6 fl (35.1-43.9); Red Blood Count 2.97 M/mm3 (4.2-5.4); White Blood Count 5.6 K/mm3 (4.4-11.0)
[2021-12-21 12:12] LABS: Glucose Challenge Gest 1H 50g 99 mg/dL (70-140)
== END 2021-12-21 23:59 | disposition short-term general hospital (02) ==
LOC: WOBLAB 09:25
PROVIDERS: PCP Family Medicine; Visit Provider Obstetrics & Gynecology
DX: Z34.82 Encounter for supervision of other normal pregnancy, second trimester (principal)
CPT/HCPCS: 36415; 82950; 85027

== ENCOUNTER → 2022-03-09 | Outpatient (CLI) | payer OTHER, SELFPAY | END | disposition home or self-care (01) | LOC: LABSPEC 14:59 | PROVIDERS: PCP Family Medicine; Visit Provider Obstetrics & Gynecology | DX: Z36.85 Encounter for antenatal screening for Streptococcus B (principal) | CPT/HCPCS: 87081 ==

== ENCOUNTER 2022-03-23 22:10 | Outpatient (CLI) | payer SELFPAY, OTHER ==
[2022-03-23 22:26] VITALS: TEMP 36.8
[2022-03-23 22:27] VITALS: BP 109/62; PULSE 110
[2022-03-24 00:57] VITALS: BMI 32.5
--- NOTE | 2022-03-24 08:24 | OB.TRI.NOTE ---
HPI - General HPI Narrative MARTELL DURAN, is a 26 F who presents at 39 weeks gestation with some labor discomfort. Denies any leaking of fluid or bleeding. PFSH PFSH Home Medications PNV no.[id number] acid 1 tab PO DAILY 11/04/18 [History Last Taken 03/23/22] citalopram 20 mg PO DAILY 05/03/20 [History Last Taken 03/23/22 08:00] Vitamin D 1 cap PO DAILY 06/18/20 [History Last Taken 03/23/22] pao [id number] 1 ea PO DAILY 06/18/20 [History Last Taken 03/23/22] omega-3 fatty acids-fish oil 1 ea PO DAILY 06/18/20 [History Last Taken 03/23/22] amoxicillin 500 mg tablet 1,000 mg PO Q8H #30 tab 10/13/21 [Rx Last Taken Unknown] Allergy/AdvReac Type Severity Reaction Status Date / Time No Known Allergies Allergy Verified 03/24/22 00:59 Social History Smoking Status: Never smoker History Elective abortions Hx Para 1 Spontaneous abortions Hx # Term Pregnancies Ectopic pregnancies Hx # Pregnancies Multiple births # of living children NST FHR Rate Baby A NST Reactive:: Yes FHR Category:: Category I Uterine Activity:: Irregular contractions infrequently Assessment & Plan (1) False labor, antepartum: PLAN: 39-week intrauterine with false labor. After observing for 1 to 2 hours no cervical change was noted. Patient resting comfortably and is okay with going home until active labor ensues. Routine labor instructions given.
== END 2022-03-23 23:40 | disposition home or self-care (01) ==
LOC: WPOUT 22:13 → WP 22:14
PROVIDERS: PCP Family Medicine; Visit Provider Obstetrics & Gynecology
DX: O47.1 False labor at or after 37 completed weeks of gestation (principal); Z3A.39 39 weeks gestation of pregnancy
CPT/HCPCS: 59025; 59050; 99218; G0378

== ENCOUNTER 2022-03-24 14:55 | Outpatient (CLI) | payer SELFPAY, OTHER ==
[2022-03-24 15:04] VITALS: BMI 32.5
[2022-03-24 15:12] VITALS: BP 113/59; PULSE 134; TEMP 37.2; O2SAT 97
[2022-03-24 15:46] LABS: ROM Internal Control Test YES-OK TO RESULT pt. (Internal QC); ROM Patient Test Negative (Negative)
--- NOTE | 2022-03-26 11:17 | OB.TRI.NOTE ---
HPI - General HPI Narrative MARTELL DURAN, is a 26 F who presents at 39+ weeks gestation with some leaking of fluid and contractions. Patient was scheduled for induction earlier this week but labor and delivery has been too full to accommodate elective induction's. PFSH PFSH Home Medications PNV no.[id number] acid 1 tab PO DAILY 11/04/18 [History Last Taken 03/23/22] Vitamin D 1 cap PO DAILY 06/18/20 [History Last Taken 03/23/22] pao [id number] 1 ea PO DAILY 06/18/20 [History Last Taken 03/23/22] omega-3 fatty acids-fish oil 1 ea PO DAILY 06/18/20 [History Last Taken 03/23/22] Allergy/AdvReac Type Severity Reaction Status Date / Time No Known Allergies Allergy Verified 03/24/22 00:59 Social History Smoking Status: Never smoker History Elective abortions Hx Para 1 Spontaneous abortions Hx # Term Pregnancies Ectopic pregnancies Hx # Pregnancies Multiple births # of living children NST FHR Rate Baby A NST Reactive:: Yes FHR Category:: Category I Assessment & Plan (1) False labor, antepartum: PLAN: 39+ week intrauterine with false labor. ROM test negative. NST reactive. Discharged home with routine labor instructions.
== END 2022-03-24 17:13 | disposition home or self-care (01) ==
LOC: WPOUT 14:59 → WP 14:59
PROVIDERS: Referring Provider Obstetrics & Gynecology; Visit Provider Obstetrics & Gynecology
DX: O47.1 False labor at or after 37 completed weeks of gestation (principal); Z3A.39 39 weeks gestation of pregnancy
CPT/HCPCS: 59025; 59050; 84112; 99218; G0378

== ENCOUNTER 2022-03-27 10:03 | Inpatient (IN) | payer SELFPAY, OTHER ==
[2022-03-27] VITALS (41 sets, daily range): BP systolic 81–126; BP diastolic 45–79; PULSE 52–241; TEMP 36.7–37.7; O2SAT 96–99; BMI 32.5
[2022-03-27] MEDS: Lactated Ringers 1,000 ML 50 ML IV (10:15)
[2022-03-27 10:43] LABS: Absolute Neutrophil Count 7.3 X10^3/uL (2.0-7.7); Basophil# 0.01 X10^3/uL; Basophil% 0.1 % (0-1); Eosinophil# 0.22 X10^3/uL; Eosinophils% 2.2 % (0-5); Hematocrit 27.5 % (37-47); Hemoglobin 9.1 g/dL (12.0-15.0); Lymphocyte % 15.2 % (19-41); Mean Corp Hgb Conc 33.1 g/dL (32-36); Mean Corpuscular Hgb 28.9 pg (27.0-32.0); Mean Corpuscular Volume 87.3 fL (81-99); Mean Platelet Vol. 10.9 fl (6.2-12.0); Monocyte# 0.81 X10^3/uL; Monocyte% 8.2 % (0-10); NRBC Flagged by Analyzer 0 % (0-5); Neutrophil # 7.32 X10^3/uL (2.7-7.7); Neutrophil % 73.9 % (47-70); Platelet Count 180 K/mm3 (150-450); RBC Distribution Width CV 13.2 % (11.6-14.6); RBC Distribution Width SD 41.2 fl (35.1-43.9); Red Blood Count 3.15 M/mm3 (4.2-5.4); White Blood Count 9.9 K/mm3 (4.4-11.0)
--- NOTE | 2022-03-27 10:47 | HP.PCM_ITS ---
History and Physical Date of Admission: 03/27/22 ACOG ANTEPARTUM RECORD - HISTORY AND PHYSICAL (03/27/2022) Name: MARTELL DURAN History of this : This is a 26 year old [id number] presents at 40 wks + 0 days gestation in active labor. OB Physician: Triny Alvarez MD 's Physician: Dr Mathews ...................................................................... : 1995 Age: 26 Address: [address] [place] [address] Phone: ([phone] Insurance Carrier: [facility] [employer] [id number] Emergency Contact: EDILIA DURAN [phone] ...................................................................... Final MICHAEL: 03/27/22 By Ultrasound: PARITY: (G-Total Pregnancies P-Fullterm,Premature,Induced AB,Spont AB, Ectopics, Multiple,Living) MICHAEL CONFIRMATION: By LMP: 06/20/21 By First Ultrasound Exam: 06/21/20 Final MICHAEL: 03/27/22 OB PROBLEM LIST: Anemia Cervical tear and PPH with last delivery Declined genetic and carrier screening Epidural planned Formual feeding Takes Celexa for depression/anxiety ALLERGIES: NKDA MEDICATIONS: biotin 10 mg tablet One pill by mouth once a day Calcium 500 500 mg calcium (1,250 mg) tablet Celexa 20 mg tablet 1 PO QD Grabill 3-6-9 1,200 mg capsule 28 mg iron-800 mcg tablet One pill by mouth once a day Probiotic 10 billion cell capsule One pill by mouth once a day Supplement (s) [No Strength] vitamin D SOCIAL HISTORY: Smoking - Never Alcohol Use - denies drinking Diet - balanced Diet, caffeine < 2 drinks per day and Water intake tries for 64 oz daily. 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 Spouse-Sig Other Phone No - [phone] Children Name(s) - Elba MEDINA (20) PRIOR DELIVERY HISTORY ____ DEL DATE GEST LAB WT LB WT OZ TYPE ANES LABOR TX Dec 08 39 [phone] Vag Epidural No Jun 08 39 16 8 4 Vag Local No ANTEPARTUM FLOW CHART VISIT GE RTC FU F F [place] U U DATE WK MD WKS HT PN HR M SS BP ED WT [place] GL D EF ST __ ____ ___ __ __ ___ __ __ __ ___ __ __ __ ___ __ March SHM 1 38 V + + 100/66 0 183 tr - 4 60 -2 March SHM 1 39 V + + 124/80 0 181 tr - 3 50 -3 26 Feb 38 SHM 1 38 V + + 104/68 sl 182 - - 2 50 -3 20 Feb 37 SHM 1 37 V + + 116/70 0 181 - - 2 50 -3 11 Feb 36 CM + + 96/54 0 180 tr ne 11 Feb 36 CM + + 96/54 0 180 tr ne 30 Jan 34 SHM 2 34 V + + 128/68 0 175 - - 15 Jan 32 SHM 2 32 V + + 106/70 0 175 - - 01 Jan 30 SHM 2 30 V + + 105/60 sl 173 - - 01 Jan 15 SHM 2 26 ? + + 90/60 0 166 tr - 28 Nov 09 SHM 4 21 + + 100/60 0 158 tr - 09 Oct 03 SHM 5 + O 100/58 0 156 tr - ANTEPARTUM NOTE(S): Mar 25 2022: here for cervix ck Mar 22 2022: Mar 15 2022: see note Mar 09 2022: Feb 28 2022: Feb 28 2022: Feb 16 2022: Feb 01 2022: dull acne near fundus Jan 18 2022: feeling well Dec 21 2021: see note Nov 16 2021: comp u/s today Sep 28 2021: feeling well COMPREHENSIVE ANTEPARTUM NOTE(S): Mar 25 2022: IOL postponed by [facility] x 2. Membranes stripped. Mar 22 2022: Martell is here for visit at 39.2 w. Planned induction today has been cancelled due to WP acuity. Martell is feeling well. Baby active. Would like VE today. DRC. Mar 22 2022: Presents for membrane stripping due to IOL postponed. Pt rescheduled tentatively to tomorrow 7am. Cervix moderate and midposition. Membranes stripped. Mar 22 2022: H taken to OB. tkg Mar 15 2022: CEPHALIC on US, OP. Desires elective IOL at 39+ wga. Will schedule. Mar 15 2022: Doing well. Good FM, occ edema. Reviewed FM, SROM, and labor. Had PP hemorrhage x2 and plans epidural with this labor. LMT Induction scheduled for 03/22/22 @ 7 am. LMT Mar 09 2022: Martell is 37w3d here for PNV good FM no edema. No concerns. Does have some irregular contractions. GBS and LARC consents today. BR Mar 09 2022: GBS today. LARC declined. Feb 28 2022: 36/1w DFM - NST REACTIVE. A lot of FM now in office. Reports racing heart beat a few times over the past couple days. Reports some dyspnea with it. Resolves on its own, does not have any relation to activity/rest. No lightheadedness, chest pain. Comfortable in room, HR regular rate and rhythym on exam. Recommend EKG - pt will do if this persists over the next few days. No COVID this . To Feb 28 2022: Martell is here at 36.1 w gest for NST for dec movement today. First NST w this pg explained and questions answered. Monitor strip read as reactive by Dr BLANCO. Martell has order for EKG although declined today. I advised her to consider having this done. She knows to go to ER for worsening symptoms as described by Dr BLANCO. ABBY. Feb 16 2022: Martell is 34w3d here for PNV good FM no edema. States she had one episode yesterday or a dark brown spotting. Denies anything since. Declines pelvic exam. BR Feb 01 2022: Martell is here for a pnv at 32/2. Good FM. No edema present. States within the last couple of weeks she had 2-3 days of decreased FM but states she was still having 5 mvmt's per hour. She would like to discuss her delivery plan. States she has a dull ache in upper abdomen exacerbated by FM occasionally. No other concerns expressed. MK Feb 01 2022: Fundus soft, NT. No RUQ or epigastric tenderness. Pt notes soreness intermittent. Recommend maternity belt. She inquires about delivery mode - hx PPH associated with cervical lac prior - pt had no epidural however. Discussed benefits of epidural to reduce second stage complications. Pt considering further. Jan 18 2022: Martell is 30w2d. Here for PNV. Good FM. Slight edema. She is doing well. She does not have any complaints/concerns at this time. MR Jan 18 2022: PTL, FM precautions. Pepcid for heartburn. Dec 21 2021: Has decreased appetite with quesiness when eating, but tolerates PO and eats regularly. Denies heartburn, indigestion, vomiting. precautions reviewed. Dec 21 2021: Martell reports that that she just does not have much of an denise etite. Discussed trying foods that are soft, easy to digest, and not fried, or spicy. Weight gain is noted from last visit. Actually up 8 lbs. GCT and CBC today. FM reviewed. LMT Nov 16 2021: Comp u/s today. Doing well and feels lots of mvmt. LMT Nov 16 2021: Anatomy scan today wnl, EFW 78th%, FEMALE, placenta ANTERIOR. ok for . Bridget Herrera, PTL precautions. Glucola info for next visit given. Sep 30 2021: TELEHEALTH NOB VISIT, 25 MINUTE DURATION. Martell is a 26 year old with an MICHAEL of 03/27/2022, current GA is 14 w 4 d. She resides with her , Edilia, and their two young children, Louie and Elba. Both of her children were delivered by at [facility]; she had a rapid second stage with her youngest, and had a cervical tear and PPH. Past history updated. Ho merrill at [facility] is planned Sep 28 2021: Martell is here visit. She is not interested in genetic or carrier screening. Plans only the comp u/s and declines early dating u/s. LMT Sep 28 2021: Discussed movement, musculoskeletal discomforts. Pt notes her appetite and nausea are much improved. 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 Plan for anatomy scan at next visit. REVIEW OF SYSTEMS: GENERAL - Denies fever, or chills SKIN - Denies rash, new skin lesions, or change in moles EYES - Denies blurred vision, or change in visual acuity EARS - Denies ear pain, or difficulty hearing NOSE - Denies nasal congestion, discharge, or bleeding MOUTH - Denies sore throat, or difficulty swallowing NECK - Denies pain or swelling RESPIRATORY - Denies shortness of breath, cough, wheezing CARDIOVASCULAR - Denies palpitations, chest pain, orthopnea, PND, peripheral edema, syncope or claudication GASTROINTESTINAL - Denies nausea, vomiting, diarrhea, constipation, Denies abdominal pain, melena and or bright red blood GENITOURINARY - Denies dysuria, frequency of urination, urgency, or hesitancy MUSCULOSKELETAL - Denies joint or muscle pain, or back pain NEUROLOGICAL - Denies localized numbness, weakness, or tingling PSYCHIATRIC - Denies depression, anxiety, substance abuse or suicide attempts ENDOCRINE - Denies heat or cold intolerance, weight loss or gain, increasing thirst HEMATO-IMMUNOLOGIC - Denies easy bruising, bleeding, oral ulcerations or recurrent infections GENETICS SCREENING: Age 35+ years: No Thalassemia: No Neural Tube Defect: Yes cousin Down Syndrome: Yes Cousin ALLAN-SACHS: No Sickle Cell Disease: No Hemophilia: No Musc. Dystrophy: No Cystic Fibrosis: No-declines screening [place] Chorea: No Mental Retardation: No Fragile X: No Other genetic: No Other defects: No SABs/still births: No Drugs since LMP: Yes INFECTION HISTORY: High risk AIDS: No High risk Hepatitis: No Exposed to TB: No Exposed to Herpes: No Rash/viral illness since LMP: No History of STD: No MENSTRUAL HISTORY: *Menses Amount/Duration: 4-5 DAYSMenses Regularity: RegularFrequency: monthlyMenarche (Age Onset): 14* PAST SUMMARY: PARITY: 1. Total Pregnancies............ 3 2. Full Term Pregnancies........ 2 3. Premature.................... 0 4. Abortions - Induced.......... 0 5. Abortions - Spontaneous...... 0 6. Ectopics..................... 0 7. Multiple Births.............. 0 8. Living Children.............. 2 PAST #1: Date of :.................. 11/22/18 Gestation Weeks:................ 39 Length of labor(hours):......... 9 Sex:............................ M Weight-lbs:............... 9 Weight-oz:................ 0 Type of Delivery:............... Vag Type of Anesthesia:............. Epidural Place of Delivery:.............. [facility] Treatment of Labor?:.... No Comment: PAST #2: Date of :.................. 06/18/20 Gestation Weeks:................ 39 Length of labor(hours):......... 16 Sex:............................ F Weight-lbs:............... 8 Weight-oz:................ 4 Type of Delivery:............... Vag Type of Anesthesia:............. Local Place of Delivery:.............. [place] Treatment of Labor?:.... No Comment: CERVICAL TEAR, PPH PHYSICAL EXAMINATION General Appearence: 26 yo female in no acute distress Vital Signs: AF, VSS Heart: RRR without rubs or gallops Lungs: CTA x 2 Breasts: deferred Abdomen: gravid Pelvis: Cervix: 5-6/90 Presentation: cephalic Station: -2 Fetus: Size: AGA Movement: present Heart: present LAB TEST(S) ORDERED SINCE:06/30/21 08/26/2021 MISCELLANEOUS LAB PROCEDURE 08/19/2021 URINE CULTURE 08/18/2021 CHLAMYDIA/GC SESAR APTIMA 08/17/2021 URINALYSIS, ROUTINE (DIPSTICK) 08/17/2021 THYROID STIM HORMONE (TSH) 08/17/2021 RUBELLA IGG 08/17/2021 T AND S-NO CHARGE W/PNP 08/17/2021 L509.8000 08/17/2021 HIV - [facility] 08/17/2021 HEPATITIS C ANTIBODY 08/17/2021 HEPATITIS B SURFACE ANTIGEN 08/17/2021 COMPREHENSIVE METABOLIC PROFIL 08/17/2021 CBC W/DIFF, AUTOMATED 03/27/2022 CBC W/DIFF, AUTOMATED 03/24/2022 (ROM) RUPTURE OF MEMBRANES 03/12/2022 RULE OUT BETA STREP (GRP. B) 12/21/2021 GLUCOSE CHALLENGE GEST 1H 50G 12/21/2021 CBC-COMPLETE BLOOD CNT NO DIFF == ==== Order Observation Description Value Ref_Range A* Site == ==== CBC W/DIFF, AUT NOTE [facility] CBC W/DIFF, AUT WBC 9.9 K/mm3 4.4-11.0 ML CBC W/DIFF, AUT RBC 3.15 M/mm3 4.2-5.4 L ML CBC W/DIFF, AUT HGB 9.1 g/dL 12.0-15.0 L ML CBC W/DIFF, AUT HCT 27.5 37-47 L ML CBC W/DIFF, AUT MCV 87.3 fL 81-99 ML CBC W/DIFF, AUT MCH 28.9 pg 27.0-32.0 ML CBC W/DIFF, AUT MCHC 33.1 g/dL 32-36 ML CBC W/DIFF, AUT RDW CV 13.2 11.6-14.6 ML CBC W/DIFF, AUT RDW SD 41.2 fl 35.1-43.9 ML CBC W/DIFF, AUT PLT 180 K/mm3 150-450 ML CBC W/DIFF, AUT MPV 10.9 fl 6.2-12.0 ML CBC W/DIFF, AUT NEUT% 73.9 47-70 H ML CBC W/DIFF, AUT LY% 15.2 19-41 L ML CBC W/DIFF, AUT MONO% 8.2 0-10 ML CBC W/DIFF, AUT EO% 2.2 0-5 ML CBC W/DIFF, AUT BASO% 0.1 0-1 ML CBC W/DIFF, AUT IG% 0.400 0.0-0.9 ML IG% - Immature Granulocytes (promyelocytes, myelocytes and metamyelocytes) > 1% indicates that a LEFT SHIFT is Present. CBC W/DIFF, AUT ABSOLUTE NEUT 7.3 X10 3/uL 2.0-7.7 ML CBC W/DIFF, AUT ABSOLUTE LYMPH 1.50 X10 3/uL 0.83-4.51 ML CBC W/DIFF, AUT NUCLEATED RBC 0 0-5 ML (ROM) RUPTURE O NOTE [facility] (ROM) RUPTURE O ROM Negative Negative ML Amniotic fluid not present indicates No Rupture of Membranes at time of specimen collection. RULE OUT BETA S NOTE [facility] GLUCOSE CHALLEN NOTE [facility] GLUCOSE CHALLEN GLU GEST 50G 1H 99 mg/dL 70-140 ML CBC-COMPLETE BL NOTE [place] CBC-COMPLETE BL WBC 5.6 K/mm3 4.4-11.0 ML CBC-COMPLETE BL RBC 2.97 M/mm3 4.2-5.4 L ML CBC-COMPLETE BL HGB 9.4 g/dL 12.0-15.0 L ML CBC-COMPLETE BL HCT 27.4 37-47 L ML CBC-COMPLETE BL MCV 92.3 fL 81-99 ML CBC-COMPLETE BL MCH 31.6 pg 27.0-32.0 ML CBC-COMPLETE BL MCHC 34.3 g/dL 32-36 ML CBC-COMPLETE BL RDW CV 12.9 11.6-14.6 ML CBC-COMPLETE BL RDW SD 43.6 fl 35.1-43.9 ML CBC-COMPLETE BL PLT 155 K/mm3 150-450 ML CBC-COMPLETE BL MPV 11.0 fl 6.2-12.0 ML CHLAMYDIA/GC NA NOTE [facility] CHLAMYDIA/GC NA CHLAMY,NUC ACID Negative Negative LCI CHLAMYDIA/GC NA GC BY NUC ACID Negative Negative LCI Performed at: =[address] [id number] Assignment Desk Assistant: Demetra Barba MD, Phone: [phone] MISCELLANEOUS L NOTE [facility] MISCELLANEOUS L MISC LAB TEST ML TEST RESULT LIMITS Magnesium, RBC, 5.7 mg/dL 4.2-6.8 TESTING PERFORMED AT [facility]. ORIGINAL REPORT ON FILE IN LAB CONTAINS ADDITIONAL TEST SITE INFORMATION. URINE CULTURE NOTE [facility] PN N [facility]~[address] [place], [address]~ T AND AB SCREEN GEL NEGATIVE ML HEPATITIS C ANT NOTE [place] HEPATITIS C ANT HEPATITIS C AB Non-Reactive Nonreactive ML Non Reactive: < 0.8 Equivocal: >/= 0.8 to < 1.0 Reactive: >/= 1.0 The CDC recommends that a reactive/equivocal HCV antibody result be followed up by the HCV Nucleic Acid Amplification test (898241) HEPATITIS B RENÉE NOTE [facility] HEPATITIS B RENÉE HEP B SURF AG Non-Reactive Nonreactive ML HIV - [facility] NOTE [facility] HIV - [facility] HIV Non-Reactive Nonreactive ML L509.8000 NOTE [facility] L509.8000 SYPHILIS ABS Non-reactive ML RUBELLA IGG NOTE [place] RUBELLA IGG RUBELLA IGG Reactive Nonreactive ML Antibody Results Interpretation of Immune Status Non Reactive Presumed Non-Immune Equivocal Equivocal Reactive Presumed Immune THYROID STIM HO NOTE [place] THYROID STIM HO TSH 0.79 uIU/mL 0.358-3.74 ML COMPREHENSIVE M NOTE [place] COMPREHENSIVE M GLU 89 mg/dL 74-106 ML Please note revised GLUCOSE reference range effective 12/22/2017. COMPREHENSIVE M BUN 5 mg/dL 7-18 L ML COMPREHENSIVE M CREAT,SERUM 0.49 mg/dL 0.55-1.02 L ML The validity of the calculated GFR GFRAA in patients over 70 years has not been determined. Clinical correlation is essential. COMPREHENSIVE M EST GFR 163 mL/min >60 ML Non- GFR Calc COMPREHENSIVE M EST GFR - AA 197 mL/min >60 ML GFR Calc COMPREHENSIVE M BUN/CRE 10.1 RATIO 10-20 ML COMPREHENSIVE M T PROT 8.1 g/dL 6.4-8.2 ML COMPREHENSIVE M ALB 3.9 g/dL 3.2-5.0 ML COMPREHENSIVE M GLOB 4.2 g/dL 2.2-4.2 ML COMPREHENSIVE M A/G 0.9 RATIO 0.9-2.4 ML COMPREHENSIVE M CA,TOTAL 9.7 mg/dL 8.5-10.1 ML COMPREHENSIVE M AST 10 U/L 15-37 L ML COMPREHENSIVE M ALK P 39 U/L 45-117 L ML COMPREHENSIVE M ALT 17 U/L 13-56 ML COMPREHENSIVE M T BILI 0.50 mg/dL 0.20-1.00 ML For patients on eltrombopag therapy, use of Dimension [place] TBIL is not recommended. COMPREHENSIVE M NA 136 mmol/L 136-145 ML COMPREHENSIVE M POTASSIUM 3.9 mmol/L 3.5-5.1 ML COMPREHENSIVE M CL 104 mmol/L 98-107 ML COMPREHENSIVE M CO2 24.0 mmol/L 21.0-32.0 ML COMPREHENSIVE M GAP 8 5-15 ML CBC W/DIFF, AUT NOTE [facility] CBC W/DIFF, AUT WBC 6.3 K/mm3 4.4-11.0 ML CBC W/DIFF, AUT RBC 3.85 M/mm3 4.2-5.4 L ML CBC W/DIFF, AUT HGB 11.7 g/dL 12.0-15.0 L ML CBC W/DIFF, AUT HCT 34.8 37-47 L ML CBC W/DIFF, AUT MCV 90.4 fL 81-99 ML CBC W/DIFF, AUT MCH 30.4 pg 27.0-32.0 ML CBC W/DIFF, AUT MCHC 33.6 g/dL 32-36 ML CBC W/DIFF, AUT RDW CV 12.5 11.6-14.6 ML CBC W/DIFF, AUT RDW SD 41.2 fl 35.1-43.9 ML CBC W/DIFF, AUT PLT 303 K/mm3 150-450 ML CBC W/DIFF, AUT MPV 10.8 fl 6.2-12.0 ML CBC W/DIFF, AUT NEUT% 65.6 47-70 ML CBC W/DIFF, AUT LY% 26.5 19-41 ML CBC W/DIFF, AUT MONO% 6.7 0-10 ML CBC W/DIFF, AUT EO% 0.6 0-5 ML CBC W/DIFF, AUT BASO% 0.3 0-1 ML CBC W/DIFF, AUT IG% 0.300 0.0-0.9 ML IG% - Immature Granulocytes (promyelocytes, myelocytes and metamyelocytes) > 1% indicates that a LEFT SHIFT is Present. CBC W/DIFF, AUT ABSOLUTE NEUT 4.1 X10 3/uL 2.0-7.7 ML CBC W/DIFF, AUT ABSOLUTE LYMPH 1.66 X10 3/uL 0.83-4.51 ML CBC W/DIFF, AUT NUCLEATED RBC 0 0-5 ML URINALYSIS, ROU NOTE [facility] URINALYSIS, ROU COLOR Yellow Yellow ML URINALYSIS, ROU URINE CLARITY Clear Clear ML URINALYSIS, ROU GLUCOSE, UR Normal mg/dl Normal ML URINALYSIS, ROU BILIRUBIN URINE Negative mg/dL Negative ML URINALYSIS, ROU KETONE UR Negative mg/dl Negative ML URINALYSIS, ROU SP.GR. DIPSTX 1.015 1.002-1.030 ML URINALYSIS, ROU PH UR 8.0 5.0 - 8.0 ML URINALYSIS, ROU PROT DIPSTX Negative mg/dl Negative ML URINALYSIS, ROU UROBILI Normal mg/dl Normal ML URINALYSIS, ROU NITRITE Negative Negative ML URINALYSIS, ROU OCCULT BLOOD-UR Negative /ul Negative ML URINALYSIS, ROU LEUK ESTERASE 500 /ul Negative A ML Group B Beta Streptococcus is not isolated. Culture exhibits no growth. A POSITIVE == ==== Impression /Plan: 40 wks + 0 days intrauterine in active labor. Preparations in progress for delivery.
[2022-03-27] MEDS: fentaNYL-bupivacaine (epidural) 100 ML BAG EPIDURAL ×2 (11:23→15:40)
[2022-03-27] MEDS: Lactated Ringers 1,000 ML 200 ML IV ×2 (11:45→15:02)
[2022-03-27] MEDS: Oxytocin 30 units/NS 500 ml 30 UNITS/500 ML IV.SOLN 334 UNITS IV (18:47)
--- NOTE | 2022-03-27 19:00 | EX.PCM.OBRPT ---
Maternal Data Information Final MICHAEL: 03/27/22 Gestational age: 40 weeks Vaginal Delivery Operative Information Date of Procedure: 03/27/22 Pre-Operative Diagnosis: IUP Post-Operative Diagnosis: IUP, Macrosomia Surgery / Procedure Performed: Spontaneous Vaginal Delivery Type of Anesthesia: Epidural Estimated Blood Loss: 250 cc Findings Description of Procedure: Spontaneous vaginal delivery of a viable female with Apgars of 8/9 from an occiput anterior presentation with clear amniotic fluid and normal three-vessel placenta. No episiotomy. First-degree midline laceration repaired with 3-0 Rapide suture under epidural. Baby weighed 11 pounds 5 ounces. Sponges okay. Delivery physician: Lexx Lamar MD. Presentation: Vertex Amniotic Membrane Rupture Type: Artificial Amniotic Fluid Description: Clear Placental Delivery Description: Spontaneous Placenta Disposition: [facility] Cord Vessel Description: 3 Vessels Cord Entanglement: None Cord Gases: ABG and VBG A Gender: Female (1 minute): 8 (5 minute): 9 Post Vaginal Delivery Medications Given After Delivery: IV Pitocin and IM Methergin Episiotomy Description: None Laceration: Midline and 1st degree Complication Complications: None
[2022-03-27] MEDS: Methylergonovine 0.2 MG/ML Ampul IM (19:31)
[2022-03-27] MEDS: Acetaminophen 500 MG Tablet 1000 MG PO (19:51)
[2022-03-27] MEDS: Citalopram 20 MG Tablet PO (22:20)
[2022-03-28] VITALS (9 sets, daily range): BP systolic 101–116; BP diastolic 55–67; PULSE 53–77; RESP 14–18; TEMP 35.9–37; O2SAT 96–98
--- NOTE | 2022-03-28 09:58 | PN.OBGYN_ITS ---
Subjective Subjective Patient without complaints. Breast-feeding going well. Minimal vaginal bleeding reported. Objective Data Objective Data Vital Signs: Vital Signs Temp Pulse Resp BP Pulse Ox 98.6 F 76 14 104/59 L 96 03/28/22 09:11 03/28/22 09:11 03/28/22 09:11 03/28/22 09:11 03/28/22 09:11 Oxygen Delivery Method Room Air Weight: 183 lb 9.6 oz Body Mass Index (BMI) 32.5 Intake & Output: Intake and Output for Last 24 Hours 03/26/22 03/27/22 03/28/22 23:59 23:59 23:59 Intake Total 3165.05 / 3165.05 700 / 700 Output Total 1200 / 1200 1000 / 1000 Balance 1965.1964.05 -300 / -300 Lab / Micro Data Result Diagrams: 03/27/22 10:15 Labs: Laboratory Results - last 24 hr 03/27/22 10:15: WBC 9.9, RBC 3.15 L, Hgb 9.1 L, Hct 27.5 L, MCV 87.3, MCH 28.9, MCHC 33.1, RDW Std Deviation 41.2, RDW Coeff of Oumar 13.2, Plt Count 180, MPV 10.9, Immature Gran % (Auto) 0.400, Neut % (Auto) 73.9 H, Lymph % (Auto) 15.2 L, Stark % (Auto) 8.2, Eos % (Auto) 2.2, Baso % (Auto) 0.1, Absolute Neuts (auto) 7.3, Absolute Lymphs (auto) 1.50, Nucleated RBC % 0 03/27/22 10:15: Blood Type A POSITIVE, Antibody Screen NEGATIVE Micro: Microbiology 03/27/22 10:15 Nasal Secretion SARS-CoV-2 Antigen (Rapid) - Final Assessment & Plan (1) (spontaneous vaginal delivery): PLAN: Doing well day #1 status post routine spontaneous vaginal delivery. Will discharge to home with routine instructions if baby is able to go later today.
--- NOTE | 2022-03-28 09:59 | PCM.DC ---
Discharge Instructions Diet Discharge Diet: No restrictions Activity Discharge Activity: May Drive (In 1 to 2 days if not taking narcotic pain medication), May Shower and May Take a Tub Bath May resume sexual activity in: 4-6 weeks Additional Activity Instructions:: Nothing in the vagina for 4-6 weeks. You may return to work/school in 6 weeks. Dressing / Incision Call your doctor if you observe: Fever of 101 or Higher, Inability to urinate, Inability to have a bowel movement and Using more than 1 pad per hour Follow Up Care Please Follow Up With: Triny Keita MD When: Call [phone] to make an appointment with your doctor in 6 weeks. Test Results: Test results from this visit will be discussed in further detail at your follow-up appointment, if applicable. Discharge Plan Admission Admit Date/Time: 03/27/22 10:03 Primary Reason for Your Visit: Vaginal Delivery Attending Provider: Lexx Lamar Primary Care Provider: Mehran Mathews Discharge Orders/Prescriptions Prescriptions: No Action PNV no.[id number] acid 1 EACH tablet 1 tab PO DAILY RF: 0 omega-3 fatty acids-fish oil 1 EACH capsule,delayed release(DR/EC) 1 ea PO DAILY RF: 0 pao fznc-bkckklvm-etnxhfz-cran 1 EACH capsule 1 ea PO DAILY RF: 0 Vitamin D 1 cap PO DAILY RF: 0 citalopram [Celexa] 20 mg Tablet 20 mg PO DAILY RF: 0 Referrals / Follow Up: Mheran Mathews DO [Primary Care Provider] - Disposition Disposition (needs filled in before D/C Order can be placed): Home, Self Care
[2022-03-28] MEDS: Acetaminophen 500 MG Tablet 1000 MG PO (11:55)
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
[2022-03-28] MEDS: Ibuprofen 600 MG Tablet PO (17:21)
== END 2022-03-28 19:00 | disposition home or self-care (01) | DRG 807 ==
PROVIDERS: Admitting Provider Obstetrics & Gynecology; PCP Family Medicine; Visit Provider Obstetrics & Gynecology
DX: O36.63X0 Maternal care for excessive fetal growth, third trimester, not applicable or unspecified (principal); Z37.0 Single live birth; O99.344 Other mental disorders complicating childbirth; F32.A Depression, unspecified; F41.9 Anxiety disorder, unspecified; O70.0 First degree perineal laceration during delivery; Z3A.40 40 weeks gestation of pregnancy; Z87.59 Personal history of other complications of pregnancy, childbirth and the puerperium
CPT/HCPCS: 59025; 59050; 85025; 86850; 86900; 86901; 87426; 99218; J7120; G0378

== ENCOUNTER 2022-06-06 07:54 | Outpatient (CLI) | payer OTHER, SELFPAY ==
[2022-06-06 09:02] LABS: Glucose GTT- Fasting 99 mg/dL (74-106)
[2022-06-06 09:04] LABS: Hemoglobin A1c 5.2 % (3.8-5.6)
[2022-06-06 09:21] LABS: Insulin 12.9 mU/L (2.6-37.6)
[2022-06-06 10:06] LABS: Glucose GTT- 1 Hour 111 mg/dL (120-170)
[2022-06-06 10:59] LABS: Glucose GTT- 2 Hour 84 mg/dL (70-120)
[2022-06-06 11:03] LABS: Insulin 46.9 mU/L (2.6-37.6)
[2022-06-06 12:13] LABS: Glucose GTT- 3 Hour 73 mg/dL (74-106)
[2022-06-06 12:18] LABS: Hemoglobin A1c 5.5 % (3.8-5.6)
[2022-06-06 12:22] LABS: Insulin 6.6 mU/L (2.6-37.6)
== END 2022-06-06 23:59 | disposition home or self-care (01) ==
LOC: LAB 07:56
PROVIDERS: PCP Family Medicine
DX: E34.9 Endocrine disorder, unspecified (principal)
CPT/HCPCS: 36415; 82951; 82952; 83036; 83525

== ENCOUNTER 2023-11-01 22:26 | Emergency (ER) | payer OTHER, SELFPAY ==
[2023-11-01 22:27] VITALS: BP 133/95; PULSE 98; RESP 16; TEMP 36.2; O2SAT 100; BMI 29.7
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
--- NOTE | 2023-11-01 22:55 | RAD_ITS ---
EXAM: XR Knee Complete 4 Views or More INDICATION: Female, 28 years old. Posttraumatic left knee pain TECHNIQUE: AP, PA, lateral, and tangential patellar views COMPARISON: None FINDINGS: BONES: No acute fracture. No lytic or blastic lesion. JOINTS: Joints are in normal alignment. No periarticular degenerative or inflammatory change. No knee joint effusion. SOFT TISSUES: No soft tissue abnormality. RAD/Knee 4 or More Views IMPRESSION: No acute abnormality of the left knee Electronically Signed: Jose Rome MD at 23:23 EST ,
--- NOTE | 2023-11-01 22:55 | RAD_ITS ---
EXAM: XR Elbow Min 3 Views INDICATION: Female, 28 years old. Posttraumatic left elbow pain TECHNIQUE: AP, lateral, and bilateral oblique views COMPARISON: None FINDINGS: BONES: No acute fracture. No lytic or blastic lesion. JOINTS: Joints are in normal alignment. No periarticular degenerative or inflammatory change. SOFT TISSUES: No soft tissue abnormality. RAD/Elbow min 3 Views IMPRESSION: No acute abnormality of the left elbow Electronically Signed: Jose Rome MD at 23:23 EST ,
[2023-11-01] MEDS: Ibuprofen 600 MG Tablet PO (23:03)
== END 2023-11-02 00:17 | disposition home or self-care (01) ==
PROVIDERS: Emergency Provider Emergency Medicine; PCP Family Medicine; Visit Provider Emergency Medicine
DX: S89.92XA Unspecified injury of left lower leg, initial encounter (principal); S59.902A Unspecified injury of left elbow, initial encounter; V29.881A Electric (assisted) bicycle rider (driver) (passenger) injured in other specified transport accidents, initial encounter
CPT/HCPCS: 73080; 73564; 99283